=== PATIENT | female | born 1945 | race Caucasian/White ===

== ENCOUNTER → 2017-08-16 | Outpatient (CLI) | payer OTHER ==
[~2017-08-16] MED LIST: ALPRAZOLAM0.5 MG PO; ASPIR 8181 MG PO; ATENOLOL50 MG PO; CLONIDINE HCL0.1 MG PO; DAILY VITAMIN1 EAC3 PO; FLAXSEED; FLAXSEED OIL; FLAXSEED OIL PO; FLUOXETINE HCL40 MG PO; GLIPIZIDE ER10 MG PO; HYDROCODONE PO; LANTUS100 UNITS/ SQ; LOSARTAN POTASS25 MG PO; LOVASTATIN40 MG PO; LOVENOX40 MG/0.4 SC; MELATONIN10 M1 PO; METFORMIN HCL1000 MG PO; MISOPROSTOL200 MCG PO; NAPROXEN500 MG PO; NEURONTIN100 MG PO; NORCO 7.5-3251 EACH PO; OXYBUTYNIN CHLOR5 MG PO; VITAMIN B12; VITAMIN D-32000 UNIT PO; VITAMIN E1000 UNI3 PO
--- NOTE | 2017-08-16 13:14 | Diagnostic Imaging Report ---
PROCEDURE:X-RAY LEFT FOOT, TWO VIEWS COMPARISON:None. INDICATIONS:FOOT PAIN, STUBED 4TH DIGIT, BRUISING FINDINGS: Acute/subacute fracture of the base of the proximal fifth phalanx with surrounding soft tissue edema. Autofusion of the middle and distal phalanx of the fourth and fifth toes. 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 Chronic healed base of fifth metatarsal fracture. Benign-appearing smooth periosteal reaction of the second and fourth toes, possibly from chronic stress versus renal osteodystrophy. Calcaneal enthesophyte. Scattered vascular calcifications. CONCLUSION: 1. Acute/subacute fracture of the base of the proximal fifth phalanx with surrounding soft tissue edema. 2. Findings suggestive of neuropathic joint. Dictated by: Michael Stone M.D. on 08/16/2017 at 13:13 Electronically approved by: Michael Stone M.D. on 08/16/2017 at 13:13
== END ==
LOC: RAD 11:41
PROVIDERS: ATTEND Family Medicine
DX: M79.89 Other specified soft tissue disorders (principal); N95.8 Other specified menopausal and perimenopausal disorders

== ENCOUNTER 2019-03-27 15:01 | Inpatient (IN) | payer OTHER ==
[~2019-03-27] VITALS: Ht 170.2 cm; Wt 105.7 kg
[~2019-03-27 15:01] MED LIST changes: -FLAXSEED OIL
--- OUTSIDE RECORDS SUMMARY | 2019-03-27 15:05 | XMS REPORT ---
Author Author [facility] Address Unknown Phone Unavailable Care Team Providers Care Scientist Electronics Name Role Phone SAUD Layla BERNADETTE Unavailable Unavailable Problems This patient has no known problems. Allergies, Adverse Reactions, Alerts This patient has no known allergies or adverse reactions. Medications This patient has no known medications. Results Test Description Test Time Test Comments Text Results Atomic Results Result Comments SCR MAMM BILATERAL [place] CAD DIGITAL 2018-10-03 16:16:13 - SCR MAMM BILATERAL [place] CAD DIGITALBILATERAL DIGITAL SCREENING MAMMOGRAM 3D/2D WITH CAD: 10/03/2018CLINICAL: Asymptomatic. Digital breast tomosynthesis was performed in addition to routine CC and MLO views. Current mammographic images were evaluated by either a [facility] M-Vu or a [facility] ImageChecker CAD (computer aided detection system). Comparison is made to exams dated 07/02/2014 mammogram, 06/30 mammogram, and 05/21/2009 mammogram - [facility]. There are scattered fibroglandular tissues in both breasts. No suspicious mass, architectural distortion, malignant type calcification, or lymph node abnormality detected. Breast architecture is stable compared to prior exams.IMPRESSION: NEGATIVEThere is no mammographic evidence of malignancy. Resume annual screening mammography in one year. Meghna Salcedo M.D. ar/penrad:10/03/2018 16:16:13 Residential Manager: Gayle Vasquez , [facility] sent: BIRADS 1-2 Normal Mammogram BI-RADS: 1 Ne gative FOOT LEFT AP LAT [address] [address] Patient Name: AMIRA ACOSTA MR #: [id number] : 1945 Age/Sex: 72/F Req #: [id number] Adm Physician: Ordered by: BERNADETTE VILLAVICENCIO MD Report #: [id number] Location: [facility] Room/Bed: Procedure: [id number] DX/FOOT LEFT AP LAT Exam Date: 08/16/17 Exam Time: 1210 REPORT STATUS: Signed PROCEDURE: X-RAY LEFT FOOT, TWO VIEWS COMPARISON: None. INDICATIONS: FOOT PAIN, STUBED 4TH DIGIT, BRUISING FINDINGS: Acute/subacute fracture of the base of the proximal fifth phalanx with surrounding soft tissue edema. Autofusion of the middle and distal phalanx of the fourth and fifth toes. 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 Chronic healed base of fifth metatarsal fracture. Benign-appearing smooth periosteal reaction of the second and fourth toes, possibly from chronic stress versus renal osteodystrophy. Calcaneal enthesophyte. Scattered vascular calcifications. CONCLUSION: 1. Acute/subacute fracture of the base of the proximal fifth phalanx with surrounding soft tissue edema. 2. Findings suggestive of neuropathic joint. Dictated by: Fady Hearn M.D. on 08/16/2017 at 13:13 Electronically approved by: Fady Hearn M.D. on 08/16/2017 at 13:13 Dictated By: FADY HEARN MD [id number] Transcribed By: ROMINA on 08/16/17 1313 COPY TO: BERNADETTE VILLAVICENCIO MD
[2019-03-27 15:36] LABS: BASOPHILS % 0.2 % (0.0-1.0); EOSINOPHILS # (AUTO) 0.2 (0.0-0.4); EOSINOPHILS % 1.2 % (0.0-6.0); HEMATOCRIT 38.4 % (34.2-44.1); HEMOGLOBIN 12.4 g/dL (12.0-16.0); LYMPHOCYTES # (AUTO) 1.6 (1.0-3.2); MEAN CORPUSCULAR HEMOGLOBIN 30.2 pg (28-32); MEAN CORPUSCULAR HGB CONC 32.3 g/dL (31-35); MEAN CORPUSCULAR VOLUME 93.7 fL (81-99); MONOCYTES # (AUTO) 1.1 (0.2-0.8); MONOCYTES % 7.1 % (4.4-11.3); NEUTROPHILS # (AUTO) 12.5 (2.1-6.9); NEUTROPHILS % 80.9 % (38.7-80.0); PLATELET COUNT 338 x10e3/uL (140-360); RED CELL DISTRIBUTION WIDTH 13.4 % (11.7-14.4)
[2019-03-27 15:52] LABS: ALBUMIN 2.8 g/dL (3.5-5.0); ALBUMIN/GLOBULIN RATIO 0.7 (0.8-2.0); CALCIUM 9.9 mg/dL (8.4-10.2); CREATININE, SERUM 2.07 mg/dL (0.57-1.11)
[2019-03-27 16:15] LABS: BILIRUBIN,URINE NEGATIVE (NEGATIVE); CLARITY,URINE CLOUDY (CLEAR); COLOR,URINE YELLOW (YELLOW); KETONES,URINE NEGATIVE (NEGATIVE); LEUKOCYTE ESTERASE ,URINE SMALL (NEGATIVE); NITRITE,URINE POSITIVE (NEGATIVE); PROTEIN,URINE DIPSTICK 2+ (NEGATIVE); URINE UROBILINOGEN 0.2 mg/dL (0.2 - 1)
[2019-03-27 16:30] LABS: BACTERIA,URINE MANY /HPF
[2019-03-27] MEDS ORDERED: ONDANSETRON HCL INJ 2MG/ML 2ML 2 MG/ML VIAL IV NR (16:45)
[2019-03-27] MEDS ORDERED: MORPHINE SULFATE INJ 4 MG/ML INJ 1ML IV NR (16:45)
[2019-03-27] MEDS ORDERED: SODIUM CHLORIDE 0.9% 500ML 500 ML IV ONE (16:45)
[2019-03-27] MEDS ORDERED: DIATRIZOATE MEGL/DIATRIZOA SOD 30 ML BTL PO ONE (16:48)
--- NOTE | 2019-03-27 18:12 | Diagnostic Imaging Report ---
EXAMINATION: CT of the abdomen and pelvis without contrast. TECHNIQUE: Helical CT images of the abdomen and pelvis were performed from the lung bases to the lesser trochanters. No intravenous contrast was given. Positive enteric contrast.. Coronal and sagittal reformatted images were obtained.Dose modulation, iterative reconstruction, and/or weight based adjustment of the mA/kV was utilized to reduce the radiation dose to as low as reasonably achievable. COMPARISON: None. CLINICAL HISTORY:Stomach pain DISCUSSION: ABSENCE OF INTRAVENOUS CONTRAST DECREASES SENSITIVITY FOR DETECTION OF FOCAL LESIONS AND VASCULAR PATHOLOGY. ABDOMEN/PELVIS: LOWER THORAX: Coronary artery calcifications. HEPATOBILIARY:No focal hepatic lesions. No biliary ductal dilation. The gallbladder is normal. SPLEEN: No splenomegaly. PANCREAS: No focal masses or ductal dilatation. ADRENALS: No adrenal nodules. KIDNEYS/URETERS: Atrophy of the kidneys, worse on the left. PELVIC ORGANS/BLADDER: Bladder is normal. Hysterectomy. PERITONEUM/RETROPERITONEUM: Mild ascites. LYMPH NODES: No intra-abdominal,retroperitoneal, pelvic or inguinal lymphadenopathy. VESSELS: Limited evaluation. GI TRACT: Colonic diverticulosis BONES AND SOFT TISSUES: No bony destructive lesions. No soft tissue abnormalities. IMPRESSION: Colonic diverticulosis with possible mild sigmoid diverticulitis. Mild abdominal ascites. Signed by: Dr. Emmanuel Cedeno M.D. on 03/27/2019 6:09 PM
[2019-03-27] MEDS ORDERED: DEXTROSE 50% SYRINGE 50 ML IV PRN (19:30)
[2019-03-27] MEDS ORDERED: SODIUM CHLORIDE 0.9% 1000ML 1,000 ML ONE (19:32)
[2019-03-27] MEDS: SODIUM CHLORIDE 0.9% 1000ML 1,000 ML IV SCH (19:33)
[2019-03-27] MEDS: ONDANSETRON HCL INJ 2MG/ML 2ML 2 MG/ML VIAL IV PRN ×2 (19:40→23:58)
[2019-03-27] MEDS: METRONIDAZOLE 500MG/NS 100ML 100 ML IV SCH (19:41)
[2019-03-27] MEDS: MORPHINE SULFATE INJ 4 MG/ML INJ 1ML IV PRN ×2 (19:41→23:58)
[2019-03-27] MEDS ORDERED: GLIPIZIDE ER10 MG PO (20:02)
[2019-03-27] MEDS ORDERED: GABAPENTIN100 MG PO (20:02)
[2019-03-27] MEDS ORDERED: TRAZODONE HCL100 MG PO (20:02)
[2019-03-27] MEDS ORDERED: BASAGLAR SC (20:02)
[2019-03-27] MEDS ORDERED: LISINOPRIL2.5 MG PO (20:02)
[2019-03-27] MEDS ORDERED: DONEPEZIL HCL10 MG PO (20:02)
[2019-03-27] MEDS ORDERED: OXYCODON-ACETA1 EAC2 PO (20:02)
[2019-03-27] MEDS ORDERED: AZELASTINE137 MCG/0. IN (20:02)
[2019-03-27] MEDS ORDERED: MIRTAZAPINE7.5 MG PO (20:02)
--- NOTE | 2019-03-27 20:58 | NUR ---
PT IS TRANSFERRED FROM ER.PT IS AOX3 .RESPIRATIONS ARE EVEN AND UNLABORED .PT C/O ABD PAIN SKIN WARM AND DRY TO TOUCH RT AC 20 G IS RUNNING NS AT 125 CC/HR .FACILITY AT BEDSIDE .CALL LIGHT WITH IN REACH .CONTINUE TO MONITOR
[2019-03-27] MEDS: INSULIN REGULAR, HUMAN 100 UNIT/1 ML 3ML VIAL SQ SCH (21:00)
[2019-03-27 21:15] VITALS: BP 168/71
[2019-03-27] MEDS: CIPROFLOXACIN 400 MG/D5W 200ML 200 ML IV SCH (22:00)
[2019-03-27 23:11] VITALS: BP 168/71
[2019-03-27 23:19] VITALS: BP 168/71
[2019-03-28] VITALS (7 sets, daily range): BP systolic 146–194; BP diastolic 67–90
[2019-03-28] MEDS: METRONIDAZOLE 500MG/NS 100ML 100 ML IV SCH ×3 (04:00→20:41)
[2019-03-28] MEDS: ONDANSETRON HCL INJ 2MG/ML 2ML 2 MG/ML VIAL IV PRN ×4 (05:36→21:08)
[2019-03-28] MEDS: MORPHINE SULFATE INJ 4 MG/ML INJ 1ML IV PRN ×4 (05:36→21:10)
[2019-03-28] MEDS: SODIUM CHLORIDE 0.9% 1000ML 1,000 ML IV SCH (05:36)
[2019-03-28 05:58] LABS: BASOPHILS % 0.4 % (0.0-1.0); EOSINOPHILS # (AUTO) 0.3 (0.0-0.4); EOSINOPHILS % 2.6 % (0.0-6.0); HEMATOCRIT 34.8 % (34.2-44.1); LYMPHOCYTES # (AUTO) 1.4 (1.0-3.2); LYMPHOCYTES % 13.7 % (18.0-39.1); MEAN CORPUSCULAR HEMOGLOBIN 30.4 pg (28-32); MEAN CORPUSCULAR HGB CONC 31.6 g/dL (31-35); MEAN CORPUSCULAR VOLUME 96.1 fL (81-99); MONOCYTES % 9.6 % (4.4-11.3); NEUTROPHILS # (AUTO) 7.7 (2.1-6.9); PLATELET COUNT 258 x10e3/uL (140-360); RED BLOOD COUNT 3.62 x10e6/uL (3.6-5.1); RED CELL DISTRIBUTION WIDTH 13.7 % (11.7-14.4)
[2019-03-28 06:23] LABS: ANION GAP 13.5 mmol/L (8-16); CALCIUM 9.5 mg/dL (8.4-10.2); CREATININE, SERUM 1.72 mg/dL (0.57-1.11); POTASSIUM 5.5 mmol/L (3.5-5.1)
--- NOTE | 2019-03-28 06:34 | NUR ---
PT RESTED DURING THE NIGHT .PT C/O ABD PAIN AND GIVEN ORDERD PAIN MEDICATION.BEDSIDE REPORT GIVEN TO THE ONCOMING NURSE
[2019-03-28 06:53] LABS: PLATELET ESTIMATE ADEQUATE
--- NOTE | 2019-03-28 06:58 | NUR ---
RECEIVED REPORT FROM ONCOMING NURSE. WALKING ROUNDS DONE. PATIENT IS RESTING IN BED. RESPIRATIONS EVEN AND UNLABORED, NO ACUTE DISTRESS NOTED. CALL LIGHT WITHIN REACH. BED IN THE LOWEST POSITION.
[2019-03-28] MEDS: INSULIN REGULAR, HUMAN 100 UNIT/1 ML 3ML VIAL SQ SCH ×4 (07:30→20:46)
[2019-03-28] MEDS ORDERED: OXYCODONE PO PRN (09:15)
[2019-03-28] MEDS ORDERED: ACETAMINOPHEN PO PRN (09:15)
[2019-03-28] MEDS: ATENOLOL 50 MG TAB PO SCH (09:46)
[2019-03-28] MEDS: CIPROFLOXACIN 400 MG/D5W 200ML 200 ML IV SCH ×2 (09:48→21:50)
[2019-03-28] MEDS: FLUOXETINE HCL 20 MG CAP PO SCH (09:48)
--- NOTE | 2019-03-28 09:54 | NUR ---
DR. SWANN NOTIFIED OF POTASSIUM LEVEL OF 5.5, NO NEW ORDERS RECEIVED.
--- NOTE | 2019-03-28 16:08 | History and Physical ---
CHIEF COMPLAINT: Left abdominal pain, urinary tract infection, diverticulitis. HISTORY OF PRESENT ILLNESS: A 73-year-old female, came in with abdominal pain. She was already started on Cipro and Flagyl. The patient's pain has improved today. She is on clear liquid diet. She has also had urinary incontinence. She is using a diaper at home. The patient is otherwise stable at this time. PAST MEDICAL HISTORY: Urinary incontinent, diverticular disease, hypertension, allergic rhinitis, mild functional dementia, depression, diabetes type 2, osteoarthritis, and pain. PAST SURGICAL HISTORY: Gallbladder surgery, complete hysterectomy, and right knee replacement. SOCIAL HISTORY: The patient does not smoke or use alcohol. No regular drug. ALLERGIES: SULFA AND IBUPROFEN. HOME MEDICATIONS: 1. Atenolol. 2. Azelastine nasal spray. 3. Vitamin D3. 4. Clonidine. 5. Aricept. 6. Flaxseed. 7. Prozac. 8. Gabapentin. 9. Glipizide. 10. Lisinopril. 11. Mirtazapine. 12. Percocet p.r.n. 13. Trazodone. 14. Vitamin E. 15. . PHYSICAL EXAMINATION: VITAL SIGNS: Temperature is 98, blood pressure 152/67, pulse rate 63, and respirations 18. GENERAL: The patient is not in acute distress. She is awake. No chest pain. No abdominal pain. HEENT: Normocephalic, atraumatic. Pupils reactive. Anicteric. NECK: Supple grossly. PULMONARY: Diminished breath sounds without any wheezing or rales. CARDIOVASCULAR: Regular rate and rhythm. ABDOMEN: Tenderness in the left lower quadrant without guarding. No rebound tenderness. EXTREMITIES: No gross cyanosis or edema. NEUROLOGIC: No gross focal deficit. LABORATORY DATA: Sodium is 136, potassium 5.5, chloride 106, bicarb 22, BUN 29, creatinine 1.7, glucose 126. WBC is 10, hemoglobin 11, hematocrit 34.8, and platelets 258. CT scan of abdomen and pelvis that was done showed colonic diverticulosis with possible mild sigmoid diverticulitis. Urinalysis showed that the patient does have urinary tract infection. IMPRESSION: 1. Mild sigmoid diverticulitis. 2. Urinary tract infection. 3. Elevation of potassium, most likely from either hemolysis versus on lisinopril. PLAN: Resume the patient home medication. Discontinue IV fluid due to increased blood pressure. Continue with Cipro and Flagyl IV. Consultation with Gastroenterology. Insulin sliding scale coverage. Resume same home medication except for lisinopril. Increase in activity. PT, OT. Monitor the patient's lab work. Continue with clear liquid diet for now. MD FABBY Costa/CHAYO /[id number]
[2019-03-28] MEDS: GABAPENTIN 100 MG CAP PO SCH (16:57)
--- NOTE | 2019-03-28 19:12 | NUR ---
REPORT GIVEN TO ONCOMING NURSE. WALKING ROUNDS DONE. PATIENT IS RESTING IN BED. NO ACUTE DISTRESS NOTED. CALL LIGHT WITHIN REACH. BED IN THE LOWEST POSITION.
--- NOTE | 2019-03-28 20:00 | NUR ---
CALL PLACED TO DR SWANN TO NOTIFY PT'S ELEVATED BLOOD PRESSURE.N/O RECEIVED AND ENTERED.
[2019-03-28] MEDS ORDERED: AMLODIPINE BESYLATE 10 MG TAB PO ONE (20:30)
[2019-03-28] MEDS: INSULIN GLARGINE 100 UNITS/ML VIAL SC SCH (20:42)
[2019-03-28] MEDS: DONEPEZIL HCL 5 MG TAB PO SCH (20:45)
[2019-03-28] MEDS: TRAZODONE HCL 50 MG TAB PO SCH (20:45)
[2019-03-28] MEDS: MIRTAZAPINE 15 MG TAB PO SCH (20:45)
[2019-03-29] VITALS (8 sets, daily range): BP systolic 152–189; BP diastolic 69–92
--- NOTE | 2019-03-29 01:06 | Consultation ---
DATE OF CONSULTATION: 03/28/2019 HISTORY OF PRESENT ILLNESS: The patient is 73-year-old, who has a history of hypertension, history of dementia, depression, and diabetes, presented to the hospital because of abdominal pain and malaise in the lower abdominal area. The patient has some nausea, but denies any vomiting. Her workup so far revealed that she has evidence of acute and sigmoid diverticulitis with mild abdominal ascites. Her white count was high on admission, it is about 15 and is back to normal. Hemoglobin dropped to 11. She never have colonoscopy in the past. PAST MEDICAL PROBLEM: History of diverticular disease, hepatitis, allergic rhinitis, history of possible dementia, depression, diabetes, and arthritis. She has cholecystectomy, hysterectomy, and right knee replacement. ALLERGIES: SULFA AND IBUPROFEN. MEDICATIONS: At home include atenolol, azelastine nasal spray, vitamin D3, clonidine, Aricept, flaxseed, Prozac, gabapentin, glipizide, lisinopril, mirtazepine, trazodone, and vitamin E. REVIEW OF SYSTEMS: At this point, denies any chest pain. Denies any shortness of breath. Denies any dysphagia or odynophagia. Denies any dysuria, hematuria, or any syncopal episode. PHYSICAL EXAMINATION: GENERAL: The patient is awake and alert, appears to be stable. VITAL SIGNS: Afebrile, currently. HEAD, EYES, EARS, NOSE, AND THROAT: Normocephalic and atraumatic. Sclera is anicteric. NECK: Supple. HEART: Regular. ABDOMEN: Soft. There is some tenderness mostly in the right lower quadrant area, but also that is mild in the left lower quadrant and there is no rebound or mass. EXTREMITIES: No cyanosis. No clubbing. LAB VALUES: BUN 30 and creatinine 2.07. Liver enzymes appear to be normal. WBC today is 10.47, it was 15.44 on admission. Hemoglobin 11.0 and hematocrit of 34.8. CAT scan as mentioned before. IMPRESSION AND PLAN: 1. Acute sigmoid diverticulitis and the patient have also myositis in there. 2. History of diabetes, history of dementia, hypertension, to continue antibiotic at this point, as well as clear liquid diet. We will need to have a colonoscopy as an outpatient in about 6 to 8 weeks. Follow labs and clinically. MD MARIANA Hankins/CHAYO /[id number] cc: MD Jerald Costa MD
[2019-03-29] MEDS: ONDANSETRON HCL INJ 2MG/ML 2ML 2 MG/ML VIAL IV PRN ×3 (03:38→18:26)
[2019-03-29] MEDS: MORPHINE SULFATE INJ 4 MG/ML INJ 1ML IV PRN ×4 (03:40→23:59)
[2019-03-29] MEDS: METRONIDAZOLE 500MG/NS 100ML 100 ML IV SCH ×3 (03:47→19:48)
--- NOTE | 2019-03-29 06:52 | NUR ---
REPORT GIVEN TO ONCOMING NURSE.WALKING ROUNDS MADE.PT RESTING IN BED WITH NO S/S OF DISTRESS.
--- NOTE | 2019-03-29 06:54 | NUR ---
Received report from off going nurse. Patient is resting in bed. No acute distress noted. No s/s of pain noted at this time. Call light within reach. Bed in the lowest position.
[2019-03-29 07:09] LABS: BASOPHILS % 0.2 % (0.0-1.0); EOSINOPHILS # (AUTO) 0.3 (0.0-0.4); EOSINOPHILS % 2.2 % (0.0-6.0); HEMATOCRIT 35.4 % (34.2-44.1); HEMOGLOBIN 11.3 g/dL (12.0-16.0); LYMPHOCYTES # (AUTO) 1.2 (1.0-3.2); LYMPHOCYTES % 9.5 % (18.0-39.1); MEAN CORPUSCULAR HEMOGLOBIN 29.9 pg (28-32); MEAN CORPUSCULAR HGB CONC 31.9 g/dL (31-35); MEAN CORPUSCULAR VOLUME 93.7 fL (81-99); MONOCYTES # (AUTO) 1.7 (0.2-0.8); NEUTROPHILS # (AUTO) 9.6 (2.1-6.9); NEUTROPHILS % 74.4 % (38.7-80.0); PLATELET COUNT 346 x10e3/uL (140-360); RED BLOOD COUNT 3.78 x10e6/uL (3.6-5.1); RED CELL DISTRIBUTION WIDTH 13.7 % (11.7-14.4)
[2019-03-29 07:21] LABS: ANION GAP 12.5 mmol/L (8-16); CALCIUM 9.5 mg/dL (8.4-10.2); CREATININE, SERUM 1.99 mg/dL (0.57-1.11); POTASSIUM 5.5 mmol/L (3.5-5.1)
[2019-03-29 07:35] LABS: MAGNESIUM 1.8 MG/DL (1.3-2.1); PHOSPHORUS 3.7 MG/DL (2.3-4.7)
[2019-03-29 07:55] LABS: THYROID STIMULATING HORMONE 1.25 uIU/mL (0.350-4.940)
[2019-03-29] MEDS: INSULIN REGULAR, HUMAN 100 UNIT/1 ML 3ML VIAL SQ SCH ×4 (08:25→21:12)
[2019-03-29] MEDS: INSULIN GLARGINE 100 UNITS/ML VIAL SC SCH ×2 (08:25→21:13)
[2019-03-29] MEDS: GABAPENTIN 100 MG CAP PO SCH ×2 (08:30→16:20)
[2019-03-29] MEDS: AZELASTINE HCL 137 MCG NASAL SPRAY NS SCH (08:30)
[2019-03-29] MEDS: ATENOLOL 50 MG TAB PO SCH (08:30)
[2019-03-29] MEDS: FLUOXETINE HCL 20 MG CAP PO SCH (08:30)
[2019-03-29] MEDS: CIPROFLOXACIN 400 MG/D5W 200ML 200 ML IV SCH ×2 (09:20→21:12)
--- NOTE | 2019-03-29 09:30 | NUR ---
Notified Dr. Hdz of potassium 5.5, no new orders at this time.
[2019-03-29] MEDS ORDERED: NIFEDIPINE CR 30 MG TAB PO ONE (10:30)
[2019-03-29] MEDS ORDERED: SOD POLYSTYRENE SULFONATE SUSP 15 GM/60 ML BTL PO ONE (10:30)
--- NOTE | 2019-03-29 11:35 | NUR ---
PATIENT C/O PAIN, NOTIFIED NURSE THAT MORPHINE IS NOT WORKING FOR HER. PAGED DR. SWANN AT THIS TIME, NO ANSWER, LVM, AWAITING BUDGET CONSULTANT BACK.
[2019-03-29] MEDS: HYDROCODONE/APAP 5MG-325MG TAB PO PRN ×2 (12:48→16:49)
[2019-03-29] MEDS: ENOXAPARIN SOD INJ 40 MG/0.4 ML SYR SC SCH (16:20)
--- NOTE | 2019-03-29 19:25 | NUR ---
Report given to oncoming nurse. Walking rounds done. Patient is resting in bed. No acute distress noted. Call light within reach. Bed in the lowest position.
--- NOTE | 2019-03-29 20:20 | NUR ---
CALL PLACED TO DR SWANN AND NOTIFIED PT'S BP OF 181/77.DR SWANN STATED TO MONITOR BP FOR NOW.NO NEW ORDERS RECEIVED.
[2019-03-29] MEDS: DONEPEZIL HCL 5 MG TAB PO SCH (21:12)
[2019-03-29] MEDS: MIRTAZAPINE 15 MG TAB PO SCH (21:12)
[2019-03-29] MEDS: TRAZODONE HCL 50 MG TAB PO SCH (21:12)
[2019-03-30] VITALS (8 sets, daily range): BP systolic 118–171; BP diastolic 61–89
[2019-03-30] MEDS: METRONIDAZOLE 500MG/NS 100ML 100 ML IV SCH (03:33)
[2019-03-30] MEDS ORDERED: NIFEDIPINE CR 30 MG TAB PO SCH ×2 (06:00→06:35)
[2019-03-30 06:19] LABS: BASOPHILS % 0.2 % (0.0-1.0); EOSINOPHILS # (AUTO) 0.2 (0.0-0.4); EOSINOPHILS % 1.9 % (0.0-6.0); HEMATOCRIT 37.1 % (34.2-44.1); HEMOGLOBIN 11.9 g/dL (12.0-16.0); LYMPHOCYTES # (AUTO) 1.1 (1.0-3.2); LYMPHOCYTES % 8.4 % (18.0-39.1); MEAN CORPUSCULAR HEMOGLOBIN 30.3 pg (28-32); MEAN CORPUSCULAR HGB CONC 32.1 g/dL (31-35); MEAN CORPUSCULAR VOLUME 94.4 fL (81-99); MONOCYTES # (AUTO) 1.5 (0.2-0.8); MONOCYTES % 11.5 % (4.4-11.3); NEUTROPHILS # (AUTO) 9.9 (2.1-6.9); NEUTROPHILS % 77.5 % (38.7-80.0); PLATELET COUNT 358 x10e3/uL (140-360); RED BLOOD COUNT 3.93 x10e6/uL (3.6-5.1); RED CELL DISTRIBUTION WIDTH 13.6 % (11.7-14.4)
[2019-03-30 06:44] LABS: ANION GAP 14.3 mmol/L (8-16); CALCIUM 9.5 mg/dL (8.4-10.2); CREATININE, SERUM 2.13 mg/dL (0.57-1.11); POTASSIUM 5.3 mmol/L (3.5-5.1)
--- NOTE | 2019-03-30 07:07 | NUR ---
REPORT GIVEN TO ONCOMING NURSE.WALKING ROUNDS MADE.PT RESTING IN BED WITH NO S/S OF DISTRESS.
[2019-03-30] MEDS: INSULIN REGULAR, HUMAN 100 UNIT/1 ML 3ML VIAL SQ SCH ×4 (07:42→22:29)
[2019-03-30] MEDS: INSULIN GLARGINE 100 UNITS/ML VIAL SC SCH ×2 (08:41→22:29)
--- NOTE | 2019-03-30 08:50 | NUR ---
Notified Dr Hdz regarding potassium level 5.3, NO New orders,patient is stable
[2019-03-30] MEDS: ATENOLOL 50 MG TAB PO SCH (09:16)
[2019-03-30] MEDS: CIPROFLOXACIN 400 MG/D5W 200ML 200 ML IV SCH (09:17)
[2019-03-30] MEDS: GABAPENTIN 100 MG CAP PO SCH ×2 (09:17→17:09)
[2019-03-30] MEDS: AZELASTINE HCL 137 MCG NASAL SPRAY NS SCH (09:17)
[2019-03-30] MEDS: FLUOXETINE HCL 20 MG CAP PO SCH (09:18)
[2019-03-30] MEDS ORDERED: NIFEDIPINE CR 30 MG TAB PO ONE (09:30)
[2019-03-30] MEDS: POLYETHYLENE GLYCOL 3350 17 GM PACK PO SCH ×2 (11:08→17:09)
[2019-03-30] MEDS: SENNOSIDES 8.6 MG TAB PO SCH ×2 (11:08→17:09)
[2019-03-30] MEDS: PIPER-TAZ 3.375 GM 50 ML IV SCH ×3 (11:25→23:37)
--- NOTE | 2019-03-30 15:41 | NUR ---
Nutrition Intervention Note RD Recommendation(s) for Physician: -ADAT to GI soft, low fat diet per MD. Plan of Care: RD following, monitoring for tolerance and adequacy. Ensure Clear BID as tolerated. Nutrition reason for involvement: Clear liquids-x3 days RD Assessment 03/30: 73 YOF admitted for diverticulitis, UTI with PMH listed below. Pt reports she has not been wanting to eat anything for the past couple of days. She was unaware of any unintentional weight loss recently. Pt reported she had N/V and have not had a BM yet- LBM is recorded as 03/30 in EMR. Pt denied any chewing or swallowing issues as well as any food allergies. Recommend Ensure Clear to provide the pt with additional calories and protein. Pt reported she did not want sugar on her trays, she wanted sweet and low instead, recorded this in HT. Discussed pt in rounds, Pt has high K currently. (Ensure clear does not have any potassium in it) Per MD note from 03/29, continue antibiotic at this point, as well as clear liquid diet. We will need to have a colonoscopy as an outpatient in about 6 to 8 weeks. Spoke with nurse, unaware when diet will be advanced. If diet is not advanced within 4 days, recommend alternate source of nutrition. Pt would benefit from nutrition education at next f/u. Will continue to monitor to ensure diet advancement and tolerance. Principal Problems/Diagnoses: Diverticulitis, UTI PMH: Urinary incontinent, diverticular disease, hypertension, allergic rhinitis, mild functional dementia, depression, diabetes type 2, osteoarthritis, and pain. GI:Abd: Soft; roun, flatus: present, LBM: 03/30 Skin: no wound present Labs: 03/30: Na 134, K 5.3, CO2 21, BUN 27, Creat 2.13, Gluc 192, POC GM 201 Meds: senna, miralaax, Prozac, gabapentin, insulin, remeron, Aricept, zofran, lovone, norco, abx, Ht:67 in Wt:233 lbs BMI:36.5 kg/m^2 IBW:135 lbs Malnutrition Evaluation (03/30) The patient does not meet criteria for a specified degree of malnutrition at this time. Will re-evaluate at follow-up as appropriate. Nutrition Prescription (Diet Order): clear liquids Estimated Nutritional Needs: Calories: 9753-6763(22-25 kcal/kg/day) Weight used : IBW: 61 kg Protein : 91-122(1.5-2 gram/protein/day) Weight used: IBW: 61 kg Diet Adequacy: Not meeting calorie needs, Not meeting protein needs Diet Education Needs Assessment: Diet education not indicated, patient on temporary/transition diet. Nutrition Care Level: mod Nutrition Diagnosis: Inadequate energy intake related to medical condition as evidenced by pt being on clear liquids for 4 days. Goal: Patient will meet 75-100% of estimated needs by follow up Progress: N/A Interventions: Carb, fiber modified diet, Commercial beverage IVF, Prescription medications Monitoring/Evaluation: -Total energy intake, Total protein intake, , IVF, Prescription medication, Modified diet, Liquid supplement, Signed: Jennifer Yoo RD, KAILEY Addendum: 03/30/19 at 1620 by Jennifer Yoo DIET -BG monitoring and insulin management per MD.
--- NOTE | 2019-03-30 17:07 | Diagnostic Imaging Report ---
Exam: KUB - 2 views Indication: Abdominal pain, ileus Comparison: CT abdomen pelvis of 03/27/2019 Findings: There are multiple loops of dilated air-filled small bowel throughout the abdomen, the largest of which measures up to 5.2 cm maximum diameter. No free air. No pneumatosis. Residual contrast material in the colon. Impression: Dilated loops of air-filled small bowel measuring up to 5.2 cm more likely represent ileus than obstruction. Signed by: Nicole Will MD on 03/30/2019 5:03 PM
[2019-03-30] MEDS: ENOXAPARIN SOD INJ 40 MG/0.4 ML SYR SC SCH (17:09)
--- NOTE | 2019-03-30 19:00 | NUR ---
received report from day nurse. patient is resting comfortably in bed. bed is in lowest position and call light is within reach will continue to monitor patient.
[2019-03-30] MEDS: DONEPEZIL HCL 5 MG TAB PO SCH (21:36)
[2019-03-30] MEDS: MIRTAZAPINE 15 MG TAB PO SCH (21:36)
[2019-03-30] MEDS: TRAZODONE HCL 50 MG TAB PO SCH (21:36)
[2019-03-31] VITALS: BP 124/71
[2019-03-31 04:00] VITALS: BP 169/74
[2019-03-31] MEDS: PIPER-TAZ 3.375 GM 50 ML IV SCH ×2 (04:54→11:00)
[2019-03-31] MEDS: HYDROCODONE/APAP 5MG-325MG TAB PO PRN (04:58)
[2019-03-31 06:08] LABS: BASOPHILS % 0.3 % (0.0-1.0); EOSINOPHILS # (AUTO) 0.5 (0.0-0.4); EOSINOPHILS % 3.5 % (0.0-6.0); HEMATOCRIT 33.9 % (34.2-44.1); HEMOGLOBIN 10.8 g/dL (12.0-16.0); LYMPHOCYTES # (AUTO) 1.4 (1.0-3.2); LYMPHOCYTES % 11.1 % (18.0-39.1); MEAN CORPUSCULAR HEMOGLOBIN 29.6 pg (28-32); MEAN CORPUSCULAR HGB CONC 31.9 g/dL (31-35); MEAN CORPUSCULAR VOLUME 92.9 fL (81-99); MONOCYTES # (AUTO) 1.6 (0.2-0.8); MONOCYTES % 12.3 % (4.4-11.3); NEUTROPHILS # (AUTO) 9.3 (2.1-6.9); NEUTROPHILS % 72.1 % (38.7-80.0); PLATELET COUNT 373 x10e3/uL (140-360); RED BLOOD COUNT 3.65 x10e6/uL (3.6-5.1); RED CELL DISTRIBUTION WIDTH 13.6 % (11.7-14.4)
[2019-03-31 06:28] LABS: ANION GAP 16.6 mmol/L (8-16); CALCIUM 9.3 mg/dL (8.4-10.2); CREATININE, SERUM 2.74 mg/dL (0.57-1.11); POTASSIUM 4.6 mmol/L (3.5-5.1)
--- NOTE | 2019-03-31 07:10 | NUR ---
PT SITTING ON SIDE OF BED. DENIES PAIN.
--- NOTE | 2019-03-31 07:11 | NUR ---
report given to day nurse. patient is resting comfortably in bed. bed is in lowest position and call light is within reach.
[2019-03-31] MEDS: INSULIN REGULAR, HUMAN 100 UNIT/1 ML 3ML VIAL SQ SCH (07:30)
[2019-03-31 08:00] VITALS: BP 142/71
[2019-03-31] MEDS: FLUOXETINE HCL 20 MG CAP PO SCH (09:00)
[2019-03-31] MEDS: ATENOLOL 50 MG TAB PO SCH (09:00)
[2019-03-31] MEDS ORDERED: NIFEDIPINE CR 30 MG TAB PO SCH (09:00)
[2019-03-31] MEDS: GABAPENTIN 100 MG CAP PO SCH (09:00)
[2019-03-31] MEDS: AZELASTINE HCL 137 MCG NASAL SPRAY NS SCH (09:00)
[2019-03-31] MEDS: INSULIN GLARGINE 100 UNITS/ML VIAL SC SCH (09:00)
[2019-03-31] MEDS: POLYETHYLENE GLYCOL 3350 17 GM PACK PO SCH (09:00)
--- NOTE | 2019-03-31 09:30 | NUR ---
DR SWANN IN EARLIER PT TO BE DC LATER.
[2019-03-31] MEDS: SENNOSIDES 8.6 MG TAB PO SCH (09:53)
--- NOTE | 2019-03-31 10:45 | NUR ---
IV REMOVED. PT WAITING FOR HER .
[2019-03-31] MEDS ORDERED: ZOFRAN4 MG PO (11:01)
[2019-03-31] MEDS ORDERED: LEVAQUIN500 MG PO (11:02)
[2019-03-31] MEDS ORDERED: FLAGYL500 MG PO (11:05)
[2019-03-31] MEDS ORDERED: NIFEDIPINE20 MG PO (11:07)
[2019-03-31] MEDS ORDERED: AFEDITAB CR60 MG (11:07)
[2019-03-31] MEDS ORDERED: MIRALAX17 GM PO (11:08)
--- NOTE | 2019-03-31 11:17 | NUR ---
PT DISCHARGED AND ACCOMPANIED DOWN BY STAFF VIA WC
--- NOTE | 2019-03-31 11:45 | Discharge Summary ---
PRIMARY CARE PHYSICIAN: Jerald Soliman MD. CLINICAL ORTHOPTIST: Te Browning MD. FINAL DIAGNOSES: 1. Acute sigmoid diverticulitis without any perforation, sigmoid diverticulitis. 2. Urinary tract infection. 3. Morbid obesity. 4. Constipation. 5. Electrolyte disorder, corrected. 6. Acute dehydration with increase in BUN and creatinine at baseline of chronic kidney disease. SUMMARY: The patient is 73-year-old female, came in with abdominal pain, left lower quadrant. CT scan show early-onset sigmoid diverticulitis. The patient also has urinary tract infection. The patient has pain, nausea, and vomiting, but much improved now. Pain has subsided. The patient is morbidly obese. She is doing better in light of all the abnormal lab results. She is able to eat and advance her diet. The patient wanted to go home today. She is stating that she is not active in the hospital and she want to go home, recovery at home instead of stay remain in the hospital at this time. The patient's discharge medication is Zofran 4 mg sublingual q.4 p.r.n., Levaquin 500 mg daily for 5 days, Flagyl 500 mg t.i.d. for 5 days, Bacid 1 capsule t.i.d., Senna S 1 tablet b.i.d., nifedipine CR 60 mg daily, and MiraLAX 17 g b.i.d. Because of her chronic kidney disease, we will stop the lisinopril and we will start the patient on flaxseed. The patient is otherwise stable. Resume other home medication. The patient to follow up with Dr. Jerald Soliman within a week and Dr. Te Browning within 2 to 3 weeks. The patient will need outpatient planning for colonoscopy. The patient is otherwise stable, has bowel movement, urinating fine. No fever and pain have subsided and the patient want to go home now. MD Brittani CostaT/MODL /[id number]
== END 2019-03-31 11:17 | disposition home or self-care (01) | DRG 392 ==
LOC: ER 15:01 → ERHOLD 18:34 → MED/SURG3 21:03
PROVIDERS: ADMIT Internal Medicine; ATTEND Internal Medicine
DX: K57.32 Diverticulitis of large intestine without perforation or abscess without bleeding (principal); N39.0 Urinary tract infection, site not specified; R18.8 Other ascites; E66.01 Morbid (severe) obesity due to excess calories; Z68.36 Body mass index [BMI] 36.0-36.9, adult; E87.8 Other disorders of electrolyte and fluid balance, not elsewhere classified; E86.0 Dehydration; F03.90 Unspecified dementia, unspecified severity, without behavioral disturbance, psychotic disturbance, mood disturbance, and anxiety; Z96.651 Presence of right artificial knee joint; E87.5 Hyperkalemia; I12.9 Hypertensive chronic kidney disease with stage 1 through stage 4 chronic kidney disease, or unspecified chronic kidney disease; N18.9 Chronic kidney disease, unspecified; E11.22 Type 2 diabetes mellitus with diabetic chronic kidney disease; R32 Unspecified urinary incontinence
CPT/HCPCS: 36415; 74018; 74176; 80048; 80053; 81001; 82948; 83735; 84100; 84443; 85025; 96374; 96375; 97139; 99284; J1650; J1815; J1817; J2270; J2405; J2543; J7030; J7040

== ENCOUNTER 2020-08-12 08:31 | Inpatient (IN) | payer MEDICARE, OTHER ==
[~2020-08-12] VITALS: Ht 170.2 cm; Wt 102.2 kg
[~2020-08-12 08:31] MED LIST changes: +AFEDITAB CR60 MG; +ATORVASTATIN CA80 MG PO; +AZELASTINE137 MCG/0. IN; +BASAGLAR SC; +DONEPEZIL HCL10 MG PO; +FLAGYL500 MG PO; +FLAXSEED OIL1000 MG PO; +GABAPENTIN100 MG PO; +LEVAQUIN500 MG PO; +LISINOPRIL2.5 MG PO; +MEMANTINE HCL10 MG PO; +MIRALAX17 GM PO; +MIRTAZAPINE7.5 MG PO; +NIFEDIPINE20 MG PO; +OXYCODON-ACETA1 EAC2 PO; +TRAZODONE HCL100 MG PO; +ZOFRAN4 MG PO; +ZYRTEC10 MG PO
[2020-08-12] MEDS ORDERED: TETANUS/DIPHTHERIA TOX ADULT 0.5 ML SYR IM ONE (08:45)
[2020-08-12 09:22] LABS: BASOPHILS % 0.2 % (0.0-1.0); EOSINOPHILS % 0.3 % (0.0-6.0); HEMATOCRIT 26.6 % (34.2-44.1); HEMOGLOBIN 8.4 g/dL (12.0-16.0); LYMPHOCYTES # (AUTO) 0.6 (1.0-3.2); LYMPHOCYTES % 5.4 % (18.0-39.1); MEAN CORPUSCULAR HEMOGLOBIN 28.6 pg (28-32); MEAN CORPUSCULAR HGB CONC 31.6 g/dL (31-35); MEAN CORPUSCULAR VOLUME 90.5 fL (81-99); MONOCYTES # (AUTO) 1.2 (0.2-0.8); MONOCYTES % 11.5 % (4.4-11.3); NEUTROPHILS # (AUTO) 8.3 (2.1-6.9); NEUTROPHILS % 81.9 % (38.7-80.0); PLATELET COUNT 217 x10e3/uL (140-360); RED BLOOD COUNT 2.94 x10e6/uL (3.6-5.1); RED CELL DISTRIBUTION WIDTH 14.2 % (11.7-14.4)
[2020-08-12 09:36] LABS: INR 1.18; PROTHROMBIN TIME 15.8 seconds (11.9-14.5)
[2020-08-12 09:42] LABS: ALBUMIN 3.2 g/dL (3.5-5.0); ALBUMIN/GLOBULIN RATIO 0.9 (0.8-2.0); ANION GAP 13.6 mmol/L (8-16); CALCIUM 8.5 mg/dL (8.4-10.2); CREATININE, SERUM 2.9 mg/dL (0.57-1.11)
[2020-08-12 09:46] LABS: AMPHETAMINES SCREEN,URINE NEGATIVE (NEGATIVE); BENZODIAZEPINES SCREEN,URINE NEGATIVE (NEGATIVE); PHENCYCLIDINE SCREEN,URINE NEGATIVE (NEGATIVE)
[2020-08-12 09:47] LABS: POTASSIUM 5.6 mmol/L (3.5-5.1)
[2020-08-12] MEDS ORDERED: DEXTROSE 50% SYRINGE 50 ML IV STA (09:47)
[2020-08-12 09:50] LABS: BACTERIA,URINE MANY /HPF; CLARITY,URINE CLEAR (CLEAR); COLOR,URINE YELLOW (YELLOW); EPITHELIAL CELLS,URINE FEW /LPF; KETONES,URINE NEGATIVE (NEGATIVE); LEUKOCYTE ESTERASE ,URINE SMALL (NEGATIVE); NITRITE,URINE POSITIVE (NEGATIVE); PROTEIN,URINE DIPSTICK 1+ (NEGATIVE); RBC,URINE 0-5 /HPF (0-5); RENAL EPITHELIAL CELLS,URINE RARE; URINE UROBILINOGEN 0.2 mg/dL (0.2 - 1); WBC,URINE (MAN) 21-50 /HPF (0-5)
[2020-08-12] MEDS ORDERED: CEFTRIAXONE SOD 1 GM in SODIUM CHLORIDE 0.9% 50ML 50 ML IV ONE (10:15)
[2020-08-12] MEDS ORDERED: CEFTRIAXONE SOD 1 GM VIAL ONE (10:54)
[2020-08-12] MEDS: DEXTROSE 50% IV SCH ×2 (10:59→20:30)
[2020-08-12] MEDS: SODIUM CHLORIDE 0.9% IV SCH ×2 (10:59→20:30)
[2020-08-12 19:59] VITALS: BP 190/82
[2020-08-12] MEDS ORDERED: CLONIDINE HCL 0.1 MG TAB PO SCH (23:30)
[2020-08-12] MEDS: TRAZODONE HCL 50 MG TAB PO SCH (23:30)
[2020-08-12] MEDS ORDERED: ATENOLOL 50 MG TAB PO SCH (23:30)
[2020-08-12] MEDS: MIRTAZAPINE 15 MG TAB PO SCH (23:30)
[2020-08-12] MEDS: DONEPEZIL HCL 5 MG TAB PO SCH (23:30)
[2020-08-12] MEDS ORDERED: DEXTROSE 50% SYRINGE 50 ML IV PRN (23:30)
[2020-08-12 23:43] VITALS: BP 190/82
[2020-08-12] MEDS: CEFTRIAXONE SOD 1 GM in SODIUM CHLORIDE 0.9% 50ML 50 ML IV SCH (23:45)
[2020-08-12 23:47] VITALS: BP 190/82
[2020-08-13] VITALS (8 sets, daily range): BP systolic 155–182; BP diastolic 67–81
[2020-08-13] MEDS: OXYCODONE/ACETAMINOPHEN 5-325 1 EACH TABLET PO PRN ×2 (00:05→17:39)
[2020-08-13] MEDS ORDERED: CEFTRIAXONE SOD 1 GM in SODIUM CHLORIDE 0.9% 50ML 50 ML IV SCH (06:00)
[2020-08-13 06:34] LABS: BASOPHILS % 0.3 % (0.0-1.0); EOSINOPHILS % 0.1 % (0.0-6.0); HEMATOCRIT 25.2 % (34.2-44.1); LYMPHOCYTES # (AUTO) 0.8 (1.0-3.2); LYMPHOCYTES % 8.7 % (18.0-39.1); MEAN CORPUSCULAR HEMOGLOBIN 28.7 pg (28-32); MEAN CORPUSCULAR HGB CONC 31.7 g/dL (31-35); MEAN CORPUSCULAR VOLUME 90.3 fL (81-99); MONOCYTES % 11.4 % (4.4-11.3); NEUTROPHILS # (AUTO) 6.9 (2.1-6.9); NEUTROPHILS % 78.9 % (38.7-80.0); PLATELET COUNT 211 x10e3/uL (140-360); RED BLOOD COUNT 2.79 x10e6/uL (3.6-5.1); RED CELL DISTRIBUTION WIDTH 14.4 % (11.7-14.4)
[2020-08-13 06:53] LABS: ANION GAP 12.9 mmol/L (8-16); CALCIUM 7.9 mg/dL (8.4-10.2); CREATININE, SERUM 2.62 mg/dL (0.57-1.11); POTASSIUM 5.9 mmol/L (3.5-5.1)
[2020-08-13] MEDS: INSULIN LISPRO 100 UNIT/1 ML 3ML VIAL SQ SCH ×4 (07:30→21:00)
[2020-08-13 07:49] LABS: THYROID STIMULATING HORMONE 0.994 uIU/mL (0.350-4.940)
[2020-08-13] MEDS ORDERED: SOD POLYSTYRENE SULFONATE SUSP 15 GM/60 ML BTL PO ONE (08:15)
[2020-08-13] MEDS ORDERED: INSULIN GLARGINE 100 UNITS/ML VIAL SQ ONE (08:15)
[2020-08-13] MEDS: FLUOXETINE HCL 20 MG CAP PO SCH (09:07)
[2020-08-13] MEDS: ATORVASTATIN 40 MG TAB PO SCH (09:07)
[2020-08-13] MEDS: MEMANTINE 10 MG TAB PO SCH (09:07)
[2020-08-13] MEDS ORDERED: LISINOPRIL2.5 MG PO (10:46)
[2020-08-13] MEDS: METOPROLOL TARTRATE 50 MG TAB PO SCH ×2 (16:20→21:28)
[2020-08-13] MEDS: MIRTAZAPINE 15 MG TAB PO SCH (21:00)
[2020-08-13] MEDS: TRAZODONE HCL 50 MG TAB PO SCH (21:00)
[2020-08-13] MEDS: DONEPEZIL HCL 5 MG TAB PO SCH (21:00)
[2020-08-13] MEDS: CEFTRIAXONE SOD 1 GM in SODIUM CHLORIDE 0.9% 50ML 50 ML IV SCH (23:45)
[2020-08-14] VITALS (8 sets, daily range): BP systolic 161–205; BP diastolic 57–83
[2020-08-14] MEDS: CEFTRIAXONE SOD 1 GM in SODIUM CHLORIDE 0.9% 50ML 50 ML IV SCH (00:30)
[2020-08-14] MEDS: OXYCODONE/ACETAMINOPHEN 5-325 1 EACH TABLET PO PRN (01:30)
[2020-08-14 05:16] LABS: BASOPHILS # (AUTO) 0.1 (0.0-0.1); BASOPHILS % 0.4 % (0.0-1.0); EOSINOPHILS # (AUTO) 0.1 (0.0-0.4); EOSINOPHILS % 0.9 % (0.0-6.0); HEMATOCRIT 26.2 % (34.2-44.1); HEMOGLOBIN 8.3 g/dL (12.0-16.0); LYMPHOCYTES # (AUTO) 1.2 (1.0-3.2); LYMPHOCYTES % 9.9 % (18.0-39.1); MEAN CORPUSCULAR HEMOGLOBIN 28.4 pg (28-32); MEAN CORPUSCULAR HGB CONC 31.7 g/dL (31-35); MEAN CORPUSCULAR VOLUME 89.7 fL (81-99); MONOCYTES # (AUTO) 1.1 (0.2-0.8); MONOCYTES % 8.8 % (4.4-11.3); NEUTROPHILS # (AUTO) 9.7 (2.1-6.9); NEUTROPHILS % 79.5 % (38.7-80.0); PLATELET COUNT 297 x10e3/uL (140-360); RED BLOOD COUNT 2.92 x10e6/uL (3.6-5.1); RED CELL DISTRIBUTION WIDTH 14.5 % (11.7-14.4)
[2020-08-14 05:40] LABS: ANION GAP 16.1 mmol/L (8-16); CALCIUM 8.4 mg/dL (8.4-10.2); CREATININE, SERUM 2.48 mg/dL (0.57-1.11); POTASSIUM 5.1 mmol/L (3.5-5.1)
[2020-08-14] MEDS: HYDRALAZINE HCL 25 MG TAB PO PRN ×2 (05:50→17:46)
[2020-08-14] MEDS: INSULIN LISPRO 100 UNIT/1 ML 3ML VIAL SQ SCH ×4 (07:30→21:00)
[2020-08-14] MEDS: MEMANTINE 10 MG TAB PO SCH (08:54)
[2020-08-14] MEDS: ATORVASTATIN 40 MG TAB PO SCH (08:54)
[2020-08-14] MEDS: METOPROLOL TARTRATE 50 MG TAB PO SCH ×2 (08:54→21:00)
[2020-08-14] MEDS: FLUOXETINE HCL 20 MG CAP PO SCH (08:54)
[2020-08-14] MEDS ORDERED: IRON SUCROSE 100 MG in SODIUM CHLORIDE 0.9% 100 ML 100 ML IV SCH ×2 (09:00→20:00)
[2020-08-14] MEDS ORDERED: SENNA-S TABLET PO SCH (09:00)
[2020-08-14] MEDS ORDERED: COLLAGENASE 5 GM TUBE TP SCH ×2 (09:00→21:00)
[2020-08-14] MEDS ORDERED: ACETAMINOPHEN 325 MG TAB PO SCH ×2 (09:00→20:00)
[2020-08-14] MEDS ORDERED: NIFEDIPINE CR 30 MG TAB PO ONE (09:30)
[2020-08-14] MEDS: LORATADINE 10 MG TAB PO SCH (10:30)
[2020-08-14] MEDS ORDERED: MIRTAZAPINE 15 MG TAB PO SCH (21:00)
[2020-08-14] MEDS: SENNA-S TABLET PO SCH (22:09)
[2020-08-14] MEDS: TRAZODONE HCL 50 MG TAB PO SCH (22:09)
[2020-08-14] MEDS: DONEPEZIL HCL 5 MG TAB PO SCH (22:09)
[2020-08-15] VITALS: BP 141/50
[2020-08-15 04:00] VITALS: BP 167/58
[2020-08-15] MEDS ORDERED: NIFEDIPINE CR 30 MG TAB PO SCH (06:00)
[2020-08-15 06:09] LABS: CALCIUM 8.5 mg/dL (8.4-10.2); CREATININE, SERUM 2.59 mg/dL (0.57-1.11)
[2020-08-15] MEDS: INSULIN LISPRO 100 UNIT/1 ML 3ML VIAL SQ SCH (07:30)
[2020-08-15 08:38] VITALS: BP 152/62
[2020-08-15] MEDS: LORATADINE 10 MG TAB PO SCH (09:28)
[2020-08-15] MEDS: FLUOXETINE HCL 20 MG CAP PO SCH (09:28)
[2020-08-15] MEDS: SENNA-S TABLET PO SCH (09:28)
[2020-08-15] MEDS: METOPROLOL TARTRATE 50 MG TAB PO SCH (09:28)
[2020-08-15] MEDS: MEMANTINE 10 MG TAB PO SCH (09:28)
[2020-08-15] MEDS: ATORVASTATIN 40 MG TAB PO SCH (09:28)
[2020-08-15] MEDS: OXYCODONE/ACETAMINOPHEN 5-325 1 EACH TABLET PO PRN (09:47)
[2020-08-15 12:28] VITALS: BP 133/54
[2020-08-15 14:31] VITALS: BP 152/62
== END 2020-08-15 14:30 | disposition home or self-care (01) | DRG 689 ==
LOC: ER 08:50 → ERHOLD 10:24 → MED/SURG3 19:23
PROVIDERS: ADMIT Internal Medicine; ATTEND Internal Medicine
DX: N39.0 Urinary tract infection, site not specified (principal); G92 Toxic encephalopathy; E11.649 Type 2 diabetes mellitus with hypoglycemia without coma; T38.3X5A Adverse effect of insulin and oral hypoglycemic [antidiabetic] drugs, initial encounter; Z79.899 Other long term (current) drug therapy; B96.20 Unspecified Escherichia coli [E. coli] as the cause of diseases classified elsewhere; R53.81 Other malaise; D63.1 Anemia in chronic kidney disease; E11.22 Type 2 diabetes mellitus with diabetic chronic kidney disease; I12.9 Hypertensive chronic kidney disease with stage 1 through stage 4 chronic kidney disease, or unspecified chronic kidney disease; N18.30 Chronic kidney disease, stage 3 unspecified; E87.5 Hyperkalemia; M19.90 Unspecified osteoarthritis, unspecified site; F03.90 Unspecified dementia, unspecified severity, without behavioral disturbance, psychotic disturbance, mood disturbance, and anxiety; F32.9 Major depressive disorder, single episode, unspecified; Z20.822 Contact with and (suspected) exposure to COVID-19
CPT/HCPCS: 36415; 51700; 70450; 71045; 72170; 80048; 80053; 80307; 80320; 81001; 82607; 82746; 82948; 83036; 83540; 84132; 84443; 84466; 84484; 85025; 85610; 87086; 87186; 90471; 90714; 93005; 97139; 99251; 99284; J0696; J1756; J1815; J7030; J7799; U0002

== ENCOUNTER 2020-08-30 12:59 | Inpatient (IN) | payer MEDICARE ==
[~2020-08-30] VITALS: Ht 170.2 cm; Wt 129.4 kg
[2020-08-30] MEDS ORDERED: DEXTROSE 50% SYRINGE 50 ML IV ONE (13:14)
[2020-08-30] MEDS ORDERED: SODIUM CHLORIDE 0.9% 1000ML 1,000 ML IV STA (13:20)
[2020-08-30] MEDS ORDERED: DEXTROSE 50% SYRINGE 50 ML IV STA (13:20)
[2020-08-30 13:35] LABS: BASOPHILS % 0.3 % (0.0-1.0); EOSINOPHILS % 0.3 % (0.0-6.0); HEMATOCRIT 28.6 % (34.2-44.1); HEMOGLOBIN 8.7 g/dL (12.0-16.0); LYMPHOCYTES # (AUTO) 0.5 (1.0-3.2); LYMPHOCYTES % 3.1 % (18.0-39.1); MEAN CORPUSCULAR HEMOGLOBIN 27.7 pg (28-32); MEAN CORPUSCULAR HGB CONC 30.4 g/dL (31-35); MEAN CORPUSCULAR VOLUME 91.1 fL (81-99); MONOCYTES # (AUTO) 0.9 (0.2-0.8); MONOCYTES % 5.6 % (4.4-11.3); NEUTROPHILS # (AUTO) 13.7 (2.1-6.9); NEUTROPHILS % 89.5 % (38.7-80.0); PLATELET COUNT 460 x10e3/uL (140-360); RED BLOOD COUNT 3.14 x10e6/uL (3.6-5.1); RED CELL DISTRIBUTION WIDTH 15.8 % (11.7-14.4)
[2020-08-30] MEDS ORDERED: DEXTROSE 5%/0.9% SOD CHL 0 ML IV ONE (13:38)
[2020-08-30] MEDS ORDERED: DEXTROSE 5% 1,000 ML IV ONE (13:40)
[2020-08-30 13:43] LABS: INR 1.04; PROTHROMBIN TIME 14.2 seconds (11.9-14.5)
[2020-08-30 13:44] LABS: PARTIAL THROMBOPLASTIN TIME 40.7 seconds (23.8-35.5)
[2020-08-30] MEDS ORDERED: DEXTROSE 5% 1,000 ML IV SCH (13:45)
[2020-08-30 13:47] LABS: CLARITY,URINE CLOUDY (CLEAR); COLOR,URINE YELLOW (YELLOW); KETONES,URINE TRACE (NEGATIVE); LEUKOCYTE ESTERASE ,URINE LARGE (NEGATIVE); NITRITE,URINE NEGATIVE (NEGATIVE); PROTEIN,URINE DIPSTICK 2+ (NEGATIVE); URINE UROBILINOGEN 0.2 mg/dL (0.2 - 1)
[2020-08-30 13:54] LABS: ALBUMIN 2.7 g/dL (3.5-5.0); ALBUMIN/GLOBULIN RATIO 0.6 (0.8-2.0); ANION GAP 17.2 mmol/L (8-16); CALCIUM 8.1 mg/dL (8.4-10.2); CREATININE, SERUM 7.11 mg/dL (0.57-1.11); MAGNESIUM 2.2 MG/DL (1.3-2.1); POTASSIUM 5.2 mmol/L (3.5-5.1)
[2020-08-30 14:00] LABS: CREATINE KINASE MB 5.3 ng/mL (0-5.0)
[2020-08-30 14:04] LABS: B-TYPE NATRIURETIC PEPTIDE2 1360.1 pg/mL (0-100)
[2020-08-30 14:09] LABS: WBC,URINE (MAN) >50 /HPF (0-5)
[2020-08-30 14:10] LABS: BACTERIA,URINE MODERATE /HPF; EPITHELIAL CELLS,URINE FEW /LPF
[2020-08-30] MEDS ORDERED: VANCOMYCIN 1GM/NS 250 ML 250 ML IV ONE (14:15)
[2020-08-30] MEDS ORDERED: PIPERACILLIN/TAZOBACTAM 2.25 GM in SODIUM CHLORIDE 0.9% 50ML 50 ML IV SCH (15:00)
[2020-08-30] MEDS ORDERED: DEXTROSE 50% SYRINGE 50 ML IV PRN (15:00)
[2020-08-30] MEDS: OCTREOTIDE ACETATE 0.05 MG/ML AMP SQ SCH ×2 (15:14→18:56)
[2020-08-30] MEDS: DEXTROSE 5%/0.9% SOD CHL 1,000 ML IV SCH (15:14)
[2020-08-30] MEDS ORDERED: CEFEPIME HCL 1 GM VIAL IV SCH (16:15)
[2020-08-30 16:30] VITALS: BP 167/56
[2020-08-30] MEDS: CEFEPIME HCL 1GM 1 GM in SODIUM CHLORIDE 0.9% 50ML 50 ML IV SCH (17:14)
[2020-08-30 20:00] VITALS: BP 153/48
[2020-08-30 21:18] LABS: CREATINE KINASE MB 5.2 ng/mL (0-5.0)
[2020-08-30] MEDS: TRAZODONE HCL 50 MG TAB PO SCH (21:53)
[2020-08-30 22:03] VITALS: BP 153/48
[2020-08-31] VITALS (8 sets, daily range): BP systolic 123–163; BP diastolic 43–86
[2020-08-31] MEDS: OCTREOTIDE ACETATE 0.05 MG/ML AMP SQ SCH ×4 (00:50→18:06)
[2020-08-31] MEDS ORDERED: POTASSIUM CHLORIDE 20 MEQ TAB CR PO PRN (03:15)
[2020-08-31] MEDS ORDERED: DEXTROSE 50% SYRINGE 50 ML IV PRN ×2 (03:15→15:15)
[2020-08-31] MEDS ORDERED: SIMETHICONE 80 MG CHEW PO PRN (03:15)
[2020-08-31] MEDS ORDERED: ALBUTEROL/IPRATROPIUM 3 ML NEB NEB PRN (03:15)
[2020-08-31] MEDS ORDERED: CHLORASEPTIC SPRAY 177 ML BTL MM PRN (03:15)
[2020-08-31] MEDS ORDERED: DIPHENHYDRAMINE HCL 25 MG CAP PO PRN (03:15)
[2020-08-31] MEDS: CEFEPIME HCL 1GM 1 GM in SODIUM CHLORIDE 0.9% 50ML 50 ML IV SCH ×3 (05:47→21:30)
[2020-08-31 05:50] LABS: BASOPHILS % 0.4 % (0.0-1.0); EOSINOPHILS # (AUTO) 0.2 (0.0-0.4); EOSINOPHILS % 1.6 % (0.0-6.0); HEMATOCRIT 23.6 % (34.2-44.1); HEMOGLOBIN 7.3 g/dL (12.0-16.0); LYMPHOCYTES # (AUTO) 0.6 (1.0-3.2); LYMPHOCYTES % 5.7 % (18.0-39.1); MEAN CORPUSCULAR HEMOGLOBIN 28.6 pg (28-32); MEAN CORPUSCULAR HGB CONC 30.9 g/dL (31-35); MEAN CORPUSCULAR VOLUME 92.5 fL (81-99); MONOCYTES # (AUTO) 1.2 (0.2-0.8); MONOCYTES % 11.1 % (4.4-11.3); NEUTROPHILS # (AUTO) 8.4 (2.1-6.9); NEUTROPHILS % 80.2 % (38.7-80.0); PLATELET COUNT 352 x10e3/uL (140-360); RED BLOOD COUNT 2.55 x10e6/uL (3.6-5.1); RED CELL DISTRIBUTION WIDTH 15.6 % (11.7-14.4)
[2020-08-31 06:13] LABS: ALBUMIN 2.2 g/dL (3.5-5.0); ALBUMIN/GLOBULIN RATIO 0.7 (0.8-2.0); ANION GAP 15.6 mmol/L (8-16); CALCIUM 7.3 mg/dL (8.4-10.2); CREATININE, SERUM 7.34 mg/dL (0.57-1.11); POTASSIUM 5.6 mmol/L (3.5-5.1)
[2020-08-31] MEDS: DEXTROSE 5%/0.9% SOD CHL 1,000 ML IV SCH (06:13)
[2020-08-31 06:42] LABS: CREATINE KINASE MB 2.7 ng/mL (0-5.0)
[2020-08-31] MEDS: MEMANTINE 10 MG TAB PO SCH (08:06)
[2020-08-31] MEDS ORDERED: SOD POLYSTYRENE SULFONATE SUSP 15 GM/60 ML BTL PO ONE (14:00)
[2020-08-31] MEDS ORDERED: FUROSEMIDE INJ 10 MG/ML 4 ML VIAL IV ONE (14:00)
[2020-08-31] MEDS ORDERED: SODIUM BICARBONATE 650 MG TAB PO SCH (17:00)
[2020-08-31] MEDS ORDERED: VANCOMYCIN 750MG/NS 150ML IVPB 150 ML IV ONE (17:30)
[2020-08-31] MEDS: INSULIN LISPRO 100 UNIT/1 ML 3ML VIAL SQ SCH (17:56)
[2020-08-31] MEDS: SODIUM BICARBONATE 8.4% SYRING 150 ML in DEXTROSE 5% 1,000 ML IV SCH (18:02)
[2020-08-31] MEDS: TRAZODONE HCL 50 MG TAB PO SCH (21:58)
[2020-09-01] VITALS (11 sets, daily range): BP systolic 132–169; BP diastolic 49–76
[2020-09-01] MEDS: OCTREOTIDE ACETATE 0.05 MG/ML AMP SQ SCH ×4 (00:06→18:46)
[2020-09-01 00:27] LABS: CREATINE KINASE MB 1.7 ng/mL (0-5.0)
[2020-09-01 05:31] LABS: BASOPHILS # (AUTO) 0.1 (0.0-0.1); BASOPHILS % 0.6 % (0.0-1.0); EOSINOPHILS # (AUTO) 0.3 (0.0-0.4); EOSINOPHILS % 2.9 % (0.0-6.0); HEMATOCRIT 23.8 % (34.2-44.1); HEMOGLOBIN 7.6 g/dL (12.0-16.0); LYMPHOCYTES # (AUTO) 1.1 (1.0-3.2); LYMPHOCYTES % 9.4 % (18.0-39.1); MEAN CORPUSCULAR HGB CONC 31.9 g/dL (31-35); MEAN CORPUSCULAR VOLUME 90.8 fL (81-99); MONOCYTES # (AUTO) 1.4 (0.2-0.8); MONOCYTES % 12.2 % (4.4-11.3); NEUTROPHILS # (AUTO) 8.3 (2.1-6.9); PLATELET COUNT 391 x10e3/uL (140-360); RED BLOOD COUNT 2.62 x10e6/uL (3.6-5.1); RED CELL DISTRIBUTION WIDTH 15.7 % (11.7-14.4)
[2020-09-01 06:07] LABS: ANION GAP 17.1 mmol/L (8-16); CALCIUM 7.4 mg/dL (8.4-10.2); CREATININE, SERUM 6.65 mg/dL (0.57-1.11); POTASSIUM 5.1 mmol/L (3.5-5.1)
[2020-09-01] MEDS: NYSTATIN 15 GM POWDER UD BTL TOP SCH ×2 (08:04→16:24)
[2020-09-01] MEDS: MEMANTINE 10 MG TAB PO SCH (08:13)
[2020-09-01] MEDS: INSULIN LISPRO 100 UNIT/1 ML 3ML VIAL SQ SCH ×4 (09:44→21:21)
[2020-09-01] MEDS: SODIUM BICARBONATE 8.4% SYRING 150 ML in DEXTROSE 5% 1,000 ML IV SCH ×2 (12:00→21:19)
[2020-09-01] MEDS: ACETAMINOPHEN 325 MG TAB PO PRN (18:48)
[2020-09-01] MEDS ORDERED: CEFEPIME HCL 1 GM VIAL ONE (20:37)
[2020-09-01] MEDS ORDERED: SODIUM CHLORIDE 0.9% 50ML 50 ML ONE (20:38)
[2020-09-01] MEDS: TRAZODONE HCL 50 MG TAB PO SCH ×2 (21:06→21:23)
[2020-09-01] MEDS: CEFEPIME HCL 1GM 1 GM in SODIUM CHLORIDE 0.9% 50ML 50 ML IV SCH (21:23)
[2020-09-02] VITALS (8 sets, daily range): BP systolic 144–197; BP diastolic 58–87
[2020-09-02] MEDS: OCTREOTIDE ACETATE 0.05 MG/ML AMP SQ SCH ×4 (06:00→17:54)
[2020-09-02 06:39] LABS: ANION GAP 14.7 mmol/L (8-16); CALCIUM 7.6 mg/dL (8.4-10.2); CREATININE, SERUM 5.57 mg/dL (0.57-1.11); PHOSPHORUS 5.1 MG/DL (2.3-4.7); POTASSIUM 4.7 mmol/L (3.5-5.1)
[2020-09-02 06:40] LABS: FERRITIN 109.03 ng/mL (4.63-204.00)
[2020-09-02 07:00] LABS: BASOPHILS # (AUTO) 0.1 (0.0-0.1); BASOPHILS % 0.6 % (0.0-1.0); EOSINOPHILS # (AUTO) 0.3 (0.0-0.4); EOSINOPHILS % 3.5 % (0.0-6.0); HEMOGLOBIN 7.8 g/dL (12.0-16.0); LYMPHOCYTES # (AUTO) 0.8 (1.0-3.2); LYMPHOCYTES % 8.3 % (18.0-39.1); MEAN CORPUSCULAR HEMOGLOBIN 27.6 pg (28-32); MEAN CORPUSCULAR HGB CONC 31.2 g/dL (31-35); MEAN CORPUSCULAR VOLUME 88.3 fL (81-99); MONOCYTES # (AUTO) 1.4 (0.2-0.8); MONOCYTES % 14.9 % (4.4-11.3); NEUTROPHILS # (AUTO) 6.9 (2.1-6.9); NEUTROPHILS % 71.9 % (38.7-80.0); PLATELET COUNT 377 x10e3/uL (140-360); RED BLOOD COUNT 2.83 x10e6/uL (3.6-5.1); RED CELL DISTRIBUTION WIDTH 15.5 % (11.7-14.4)
[2020-09-02] MEDS: HYDRALAZINE HCL 20 MG/ML VIAL IV PRN ×3 (08:48→17:54)
[2020-09-02] MEDS: SODIUM BICARBONATE 8.4% SYRING 150 ML in DEXTROSE 5% 1,000 ML IV SCH (08:48)
[2020-09-02] MEDS: COLLAGENASE 5 GM TUBE TOP SCH (08:48)
[2020-09-02] MEDS: NYSTATIN 15 GM POWDER UD BTL TOP SCH ×2 (08:48→17:54)
[2020-09-02] MEDS: MEMANTINE 10 MG TAB PO SCH (08:48)
[2020-09-02] MEDS ORDERED: AMLODIPINE BESYLATE 5 MG TAB PO SCH (11:00)
[2020-09-02] MEDS: INSULIN LISPRO 100 UNIT/1 ML 3ML VIAL SQ SCH ×2 (11:30→16:35)
[2020-09-02] MEDS: SODIUM FERRIC GLUCONATE COMPLX 125 MG in SODIUM CHLORIDE 0.9% 100 ML 100 ML IV SCH (12:30)
[2020-09-02] MEDS: SODIUM CHLORIDE 0.9% 1000ML 1,000 ML IV SCH (12:30)
[2020-09-02] MEDS: NIFEDIPINE CR 30 MG TAB PO SCH (17:54)
[2020-09-02] MEDS ORDERED: CEFEPIME HCL 1 GM VIAL ONE (21:00)
[2020-09-02] MEDS ORDERED: SODIUM CHLORIDE 0.9% 50ML 50 ML ONE (21:01)
[2020-09-02] MEDS: CEFEPIME HCL 1GM 1 GM in SODIUM CHLORIDE 0.9% 50ML 50 ML IV SCH (21:30)
[2020-09-03] VITALS (11 sets, daily range): BP systolic 139–159; BP diastolic 51–91
[2020-09-03] MEDS: OCTREOTIDE ACETATE 0.05 MG/ML AMP SQ SCH ×3 (00:16→12:10)
[2020-09-03] MEDS: SODIUM CHLORIDE 0.9% 1000ML 1,000 ML IV SCH ×2 (03:36→14:16)
[2020-09-03 06:12] LABS: BASOPHILS # (AUTO) 0.1 (0.0-0.1); BASOPHILS % 0.6 % (0.0-1.0); EOSINOPHILS # (AUTO) 0.2 (0.0-0.4); EOSINOPHILS % 1.5 % (0.0-6.0); HEMATOCRIT 27.7 % (34.2-44.1); HEMOGLOBIN 8.6 g/dL (12.0-16.0); LYMPHOCYTES % 7.7 % (18.0-39.1); MEAN CORPUSCULAR HEMOGLOBIN 28.2 pg (28-32); MEAN CORPUSCULAR VOLUME 90.8 fL (81-99); MONOCYTES # (AUTO) 1.9 (0.2-0.8); MONOCYTES % 14.9 % (4.4-11.3); NEUTROPHILS # (AUTO) 9.5 (2.1-6.9); PLATELET COUNT 363 x10e3/uL (140-360); RED BLOOD COUNT 3.05 x10e6/uL (3.6-5.1); RED CELL DISTRIBUTION WIDTH 15.5 % (11.7-14.4)
[2020-09-03 06:32] LABS: ALBUMIN 2.4 g/dL (3.5-5.0); ALBUMIN/GLOBULIN RATIO 0.6 (0.8-2.0); ANION GAP 20.2 mmol/L (8-16); CALCIUM 8.2 mg/dL (8.4-10.2); CREATININE, SERUM 5.65 mg/dL (0.57-1.11); POTASSIUM 5.2 mmol/L (3.5-5.1)
[2020-09-03] MEDS: MEMANTINE 10 MG TAB PO SCH (09:00)
[2020-09-03] MEDS: NIFEDIPINE CR 30 MG TAB PO SCH (09:00)
[2020-09-03] MEDS: NYSTATIN 15 GM POWDER UD BTL TOP SCH ×2 (09:28→17:34)
[2020-09-03] MEDS: COLLAGENASE 5 GM TUBE TOP SCH (09:28)
[2020-09-03] MEDS: INSULIN LISPRO 100 UNIT/1 ML 3ML VIAL SQ SCH ×3 (09:40→16:30)
[2020-09-03] MEDS: SODIUM FERRIC GLUCONATE COMPLX 125 MG in SODIUM CHLORIDE 0.9% 100 ML 100 ML IV SCH (10:25)
[2020-09-03] MEDS: MEGACE 400MG/ 10ML CUP PO SCH ×2 (16:08→17:33)
[2020-09-03] MEDS ORDERED: SODIUM CHLORIDE 0.9% 50ML 50 ML ONE (19:53)
[2020-09-03] MEDS ORDERED: CEFEPIME HCL 1 GM VIAL ONE (19:53)
[2020-09-03] MEDS: HEPARIN SOD (PORCINE) 5,000 UNIT/ML VIAL SC SCH (21:00)
[2020-09-03] MEDS: TRAZODONE HCL 50 MG TAB PO SCH (21:00)
[2020-09-03] MEDS: CEFEPIME HCL 1GM 1 GM in SODIUM CHLORIDE 0.9% 50ML 50 ML IV SCH (21:30)
[2020-09-04 00:36] VITALS: BP 152/64
[2020-09-04 05:27] VITALS: BP 144/55
[2020-09-04] MEDS: SODIUM CHLORIDE 0.9% 1000ML 1,000 ML IV SCH ×2 (05:54→20:12)
[2020-09-04 06:18] LABS: BASOPHILS # (AUTO) 0.1 (0.0-0.1); BASOPHILS % 0.5 % (0.0-1.0); EOSINOPHILS # (AUTO) 0.4 (0.0-0.4); EOSINOPHILS % 3.2 % (0.0-6.0); HEMATOCRIT 23.7 % (34.2-44.1); HEMOGLOBIN 7.4 g/dL (12.0-16.0); LYMPHOCYTES # (AUTO) 0.9 (1.0-3.2); LYMPHOCYTES % 7.4 % (18.0-39.1); MEAN CORPUSCULAR HEMOGLOBIN 27.8 pg (28-32); MEAN CORPUSCULAR HGB CONC 31.2 g/dL (31-35); MEAN CORPUSCULAR VOLUME 89.1 fL (81-99); MONOCYTES # (AUTO) 1.3 (0.2-0.8); MONOCYTES % 11.1 % (4.4-11.3); NEUTROPHILS # (AUTO) 9.2 (2.1-6.9); NEUTROPHILS % 76.8 % (38.7-80.0); PLATELET COUNT 380 x10e3/uL (140-360); RED BLOOD COUNT 2.66 x10e6/uL (3.6-5.1); RED CELL DISTRIBUTION WIDTH 15.4 % (11.7-14.4)
[2020-09-04 06:50] LABS: ANION GAP 17.6 mmol/L (8-16); CALCIUM 8.1 mg/dL (8.4-10.2); CREATININE, SERUM 5.28 mg/dL (0.57-1.11); POTASSIUM 4.6 mmol/L (3.5-5.1)
[2020-09-04 08:38] VITALS: BP 171/97
[2020-09-04 08:45] VITALS: BP 171/97
[2020-09-04] MEDS: HEPARIN SOD (PORCINE) 5,000 UNIT/ML VIAL SC SCH ×2 (09:00→21:00)
[2020-09-04] MEDS: COLLAGENASE 5 GM TUBE TOP SCH (10:10)
[2020-09-04] MEDS: MEGACE 400MG/ 10ML CUP PO SCH (10:10)
[2020-09-04] MEDS: NIFEDIPINE CR 30 MG TAB PO SCH (10:10)
[2020-09-04] MEDS: NYSTATIN 15 GM POWDER UD BTL TOP SCH ×2 (10:10→18:11)
[2020-09-04] MEDS: MEMANTINE 10 MG TAB PO SCH (10:10)
[2020-09-04] MEDS: INSULIN LISPRO 100 UNIT/1 ML 3ML VIAL SQ SCH ×3 (10:11→16:30)
[2020-09-04 13:07] VITALS: BP 175/60
[2020-09-04] MEDS: SODIUM FERRIC GLUCONATE COMPLX 125 MG in SODIUM CHLORIDE 0.9% 100 ML 100 ML IV SCH (13:25)
[2020-09-04 20:11] VITALS: BP 174/61
[2020-09-04] MEDS: TRAZODONE HCL 50 MG TAB PO SCH (21:00)
[2020-09-04] MEDS ORDERED: CEFEPIME HCL 1 GM VIAL ONE (21:24)
[2020-09-04] MEDS ORDERED: SODIUM CHLORIDE 0.9% 50ML 50 ML ONE (21:25)
[2020-09-04] MEDS: CEFEPIME HCL 1GM 1 GM in SODIUM CHLORIDE 0.9% 50ML 50 ML IV SCH (21:30)
[2020-09-05] VITALS (7 sets, daily range): BP systolic 114–150; BP diastolic 50–91
[2020-09-05 06:15] LABS: BASOPHILS # (AUTO) 0.1 (0.0-0.1); BASOPHILS % 0.7 % (0.0-1.0); EOSINOPHILS # (AUTO) 0.4 (0.0-0.4); EOSINOPHILS % 3.6 % (0.0-6.0); HEMATOCRIT 25.2 % (34.2-44.1); HEMOGLOBIN 7.8 g/dL (12.0-16.0); LYMPHOCYTES # (AUTO) 0.9 (1.0-3.2); LYMPHOCYTES % 9.1 % (18.0-39.1); MEAN CORPUSCULAR HEMOGLOBIN 27.8 pg (28-32); MEAN CORPUSCULAR VOLUME 89.7 fL (81-99); MONOCYTES % 10.4 % (4.4-11.3); NEUTROPHILS # (AUTO) 7.5 (2.1-6.9); NEUTROPHILS % 74.8 % (38.7-80.0); PLATELET COUNT 379 x10e3/uL (140-360); RED BLOOD COUNT 2.81 x10e6/uL (3.6-5.1); RED CELL DISTRIBUTION WIDTH 15.6 % (11.7-14.4)
[2020-09-05 06:45] LABS: ANION GAP 18.6 mmol/L (8-16); CREATININE, SERUM 4.94 mg/dL (0.57-1.11); POTASSIUM 4.6 mmol/L (3.5-5.1)
[2020-09-05] MEDS: INSULIN LISPRO 100 UNIT/1 ML 3ML VIAL SQ SCH ×3 (07:30→16:30)
[2020-09-05] MEDS: NIFEDIPINE CR 30 MG TAB PO SCH (09:50)
[2020-09-05] MEDS: MODAFINIL 100 MG TAB PO SCH (09:50)
[2020-09-05] MEDS: MEMANTINE 10 MG TAB PO SCH (09:50)
[2020-09-05] MEDS: MEGACE 400MG/ 10ML CUP PO SCH (09:50)
[2020-09-05] MEDS: NYSTATIN 15 GM POWDER UD BTL TOP SCH ×2 (10:08→17:39)
[2020-09-05] MEDS: HEPARIN SOD (PORCINE) 5,000 UNIT/ML VIAL SC SCH ×2 (10:14→20:53)
[2020-09-05] MEDS: SODIUM FERRIC GLUCONATE COMPLX 125 MG in SODIUM CHLORIDE 0.9% 100 ML 100 ML IV SCH (11:00)
[2020-09-05] MEDS: COLLAGENASE 5 GM TUBE TOP SCH (12:30)
[2020-09-05] MEDS: SODIUM CHLORIDE 0.9% 1000ML 1,000 ML IV SCH (17:00)
[2020-09-05] MEDS ORDERED: SODIUM CHLORIDE 0.9% 50ML 50 ML ONE (20:20)
[2020-09-05] MEDS ORDERED: CEFEPIME HCL 1 GM VIAL ONE (20:20)
[2020-09-05] MEDS: TRAZODONE HCL 50 MG TAB PO SCH (20:53)
[2020-09-05] MEDS: CEFEPIME HCL 1GM 1 GM in SODIUM CHLORIDE 0.9% 50ML 50 ML IV SCH (20:54)
[2020-09-06] VITALS (8 sets, daily range): BP systolic 127–166; BP diastolic 56–72
[2020-09-06] MEDS: SODIUM CHLORIDE 0.9% 1000ML 1,000 ML IV SCH ×2 (00:48→15:06)
[2020-09-06] MEDS: INSULIN LISPRO 100 UNIT/1 ML 3ML VIAL SQ SCH ×4 (07:30→21:40)
[2020-09-06] MEDS: SODIUM FERRIC GLUCONATE COMPLX 125 MG in SODIUM CHLORIDE 0.9% 100 ML 100 ML IV SCH (09:00)
[2020-09-06] MEDS: MEGACE 400MG/ 10ML CUP PO SCH (09:57)
[2020-09-06] MEDS: MEMANTINE 10 MG TAB PO SCH (09:57)
[2020-09-06] MEDS: MODAFINIL 100 MG TAB PO SCH (09:58)
[2020-09-06] MEDS: NYSTATIN 15 GM POWDER UD BTL TOP SCH ×2 (09:58→18:02)
[2020-09-06] MEDS: NIFEDIPINE CR 30 MG TAB PO SCH (09:58)
[2020-09-06] MEDS: HEPARIN SOD (PORCINE) 5,000 UNIT/ML VIAL SC SCH ×2 (10:03→21:39)
[2020-09-06] MEDS: COLLAGENASE 5 GM TUBE TOP SCH (11:49)
[2020-09-06] MEDS: TRAZODONE HCL 50 MG TAB PO SCH (21:37)
[2020-09-07] VITALS (9 sets, daily range): BP systolic 138–153; BP diastolic 67–88
[2020-09-07] MEDS: SODIUM CHLORIDE 0.9% 1000ML 1,000 ML IV SCH ×2 (05:24→20:37)
[2020-09-07 08:46] LABS: ANION GAP 18.7 mmol/L (8-16); CALCIUM 8.1 mg/dL (8.4-10.2); CREATININE, SERUM 5.22 mg/dL (0.57-1.11); POTASSIUM 4.7 mmol/L (3.5-5.1)
[2020-09-07] MEDS: MODAFINIL 100 MG TAB PO SCH (09:29)
[2020-09-07] MEDS: MEGACE 400MG/ 10ML CUP PO SCH (09:29)
[2020-09-07] MEDS: SODIUM FERRIC GLUCONATE COMPLX 125 MG in SODIUM CHLORIDE 0.9% 100 ML 100 ML IV SCH (09:29)
[2020-09-07] MEDS: NYSTATIN 15 GM POWDER UD BTL TOP SCH ×2 (09:29→17:18)
[2020-09-07] MEDS: NIFEDIPINE CR 30 MG TAB PO SCH (09:29)
[2020-09-07] MEDS: COLLAGENASE 5 GM TUBE TOP SCH (09:29)
[2020-09-07] MEDS: MEMANTINE 10 MG TAB PO SCH (09:29)
[2020-09-07] MEDS: HEPARIN SOD (PORCINE) 5,000 UNIT/ML VIAL SC SCH ×2 (09:42→21:00)
[2020-09-07] MEDS: INSULIN LISPRO 100 UNIT/1 ML 3ML VIAL SQ SCH ×3 (11:30→20:38)
[2020-09-07] MEDS: TRAZODONE HCL 50 MG TAB PO SCH (21:00)
[2020-09-07] MEDS: CEFEPIME HCL 1GM 1 GM in SODIUM CHLORIDE 0.9% 50ML 50 ML IV SCH (21:00)
[2020-09-08] VITALS (9 sets, daily range): BP systolic 125–167; BP diastolic 53–99
[2020-09-08 05:58] LABS: BASOPHILS # (AUTO) 0.1 (0.0-0.1); BASOPHILS % 0.5 % (0.0-1.0); EOSINOPHILS # (AUTO) 0.3 (0.0-0.4); EOSINOPHILS % 2.8 % (0.0-6.0); HEMATOCRIT 25.7 % (34.2-44.1); LYMPHOCYTES # (AUTO) 0.9 (1.0-3.2); MEAN CORPUSCULAR HEMOGLOBIN 28.5 pg (28-32); MEAN CORPUSCULAR HGB CONC 31.1 g/dL (31-35); MEAN CORPUSCULAR VOLUME 91.5 fL (81-99); MONOCYTES # (AUTO) 1.1 (0.2-0.8); MONOCYTES % 9.1 % (4.4-11.3); NEUTROPHILS % 77.6 % (38.7-80.0); PLATELET COUNT 405 x10e3/uL (140-360); RED BLOOD COUNT 2.81 x10e6/uL (3.6-5.1); RED CELL DISTRIBUTION WIDTH 15.9 % (11.7-14.4)
[2020-09-08 06:09] LABS: ANION GAP 18.6 mmol/L (8-16); CALCIUM 8.3 mg/dL (8.4-10.2); CREATININE, SERUM 5.46 mg/dL (0.57-1.11); POTASSIUM 4.6 mmol/L (3.5-5.1)
[2020-09-08] MEDS ORDERED: CEFEPIME HCL 1 GM VIAL IV SCH (09:00)
[2020-09-08] MEDS: MODAFINIL 100 MG TAB PO SCH (10:17)
[2020-09-08] MEDS: NIFEDIPINE CR 30 MG TAB PO SCH (10:17)
[2020-09-08] MEDS: MEGACE 400MG/ 10ML CUP PO SCH (10:17)
[2020-09-08] MEDS: MEMANTINE 10 MG TAB PO SCH (10:17)
[2020-09-08] MEDS: COLLAGENASE 5 GM TUBE TOP SCH (10:18)
[2020-09-08] MEDS: SODIUM FERRIC GLUCONATE COMPLX 125 MG in SODIUM CHLORIDE 0.9% 100 ML 100 ML IV SCH (10:18)
[2020-09-08] MEDS: HEPARIN SOD (PORCINE) 5,000 UNIT/ML VIAL SC SCH ×2 (10:23→20:07)
[2020-09-08] MEDS: INSULIN LISPRO 100 UNIT/1 ML 3ML VIAL SQ SCH ×2 (11:30→16:30)
[2020-09-08] MEDS: SODIUM CHLORIDE 0.9% 1000ML 1,000 ML IV SCH (13:50)
[2020-09-08] MEDS ORDERED: HEPARIN SOD (PORCINE) 1000 UNIT/ML SDV ONE (16:08)
[2020-09-08] MEDS ORDERED: LIDOCAINE HCL 1% LOCAL INJ 20 ML VIAL ONE (16:17)
[2020-09-08] MEDS: FUROSEMIDE INJ 10 MG/ML 4 ML VIAL IV SCH (17:30)
[2020-09-08] MEDS: CEFEPIME HCL 1GM 1 GM in SODIUM CHLORIDE 0.9% 50ML 50 ML IV SCH (20:07)
[2020-09-08] MEDS: TRAZODONE HCL 50 MG TAB PO SCH (20:07)
[2020-09-09 05:31] VITALS: BP 152/90
[2020-09-09 06:53] LABS: ANION GAP 19.7 mmol/L (8-16); CALCIUM 8.2 mg/dL (8.4-10.2); CREATININE, SERUM 5.55 mg/dL (0.57-1.11); POTASSIUM 4.7 mmol/L (3.5-5.1)
[2020-09-09] MEDS: INSULIN LISPRO 100 UNIT/1 ML 3ML VIAL SQ SCH ×3 (07:30→16:30)
[2020-09-09 07:56] VITALS: BP 157/78
[2020-09-09 08:03] VITALS: BP 157/78
[2020-09-09 08:57] LABS: BASOPHILS # (AUTO) 0.1 (0.0-0.1); BASOPHILS % 0.5 % (0.0-1.0); EOSINOPHILS # (AUTO) 0.4 (0.0-0.4); EOSINOPHILS % 3.6 % (0.0-6.0); HEMATOCRIT 23.6 % (34.2-44.1); HEMOGLOBIN 7.2 g/dL (12.0-16.0); LYMPHOCYTES % 9.2 % (18.0-39.1); MEAN CORPUSCULAR HEMOGLOBIN 28.5 pg (28-32); MEAN CORPUSCULAR HGB CONC 30.5 g/dL (31-35); MEAN CORPUSCULAR VOLUME 93.3 fL (81-99); NEUTROPHILS # (AUTO) 8.2 (2.1-6.9); NEUTROPHILS % 75.1 % (38.7-80.0); PLATELET COUNT 394 x10e3/uL (140-360); RED BLOOD COUNT 2.53 x10e6/uL (3.6-5.1); RED CELL DISTRIBUTION WIDTH 16.1 % (11.7-14.4)
[2020-09-09] MEDS: FUROSEMIDE INJ 10 MG/ML 4 ML VIAL IV SCH (09:00)
[2020-09-09] MEDS: MODAFINIL 100 MG TAB PO SCH (09:00)
[2020-09-09] MEDS: MEMANTINE 10 MG TAB PO SCH (09:00)
[2020-09-09] MEDS: MEGACE 400MG/ 10ML CUP PO SCH (09:00)
[2020-09-09] MEDS: SODIUM FERRIC GLUCONATE COMPLX 125 MG in SODIUM CHLORIDE 0.9% 100 ML 100 ML IV SCH (09:26)
[2020-09-09] MEDS: COLLAGENASE 5 GM TUBE TOP SCH (09:26)
[2020-09-09] MEDS: HEPARIN SOD (PORCINE) 5,000 UNIT/ML VIAL SC SCH ×2 (09:28→23:24)
[2020-09-09] MEDS ORDERED: SODIUM CHLORIDE 0.9% 250ML 250 ML IV ONE (11:15)
[2020-09-09] MEDS: NIFEDIPINE CR 30 MG TAB PO SCH (11:45)
[2020-09-09 16:05] VITALS: BP 164/64
[2020-09-09] MEDS: ACETAMINOPHEN 325 MG TAB PO PRN (16:20)
[2020-09-09] MEDS ORDERED: MANNITOL 25% 12.5GM/50 ML VIAL IV PRN (18:00)
[2020-09-09] MEDS ORDERED: SODIUM CHLORIDE 0.9% 1000ML 2,000 ML IV PRN (18:00)
[2020-09-09] MEDS ORDERED: HEPARIN SOD (PORCINE) 1000 UNIT/ML SDV IV PRN (18:00)
[2020-09-09 20:10] VITALS: BP 159/71
[2020-09-09 21:04] VITALS: BP 159/71
[2020-09-09] MEDS: TRAZODONE HCL 50 MG TAB PO SCH (23:23)
[2020-09-09] MEDS: CEFEPIME HCL 1GM 1 GM in SODIUM CHLORIDE 0.9% 50ML 50 ML IV SCH (23:23)
[2020-09-10] VITALS (9 sets, daily range): BP systolic 132–227; BP diastolic 63–110
[2020-09-10 06:08] LABS: BASOPHILS # (AUTO) 0.1 (0.0-0.1); BASOPHILS % 0.5 % (0.0-1.0); EOSINOPHILS # (AUTO) 0.4 (0.0-0.4); EOSINOPHILS % 3.2 % (0.0-6.0); HEMATOCRIT 30.3 % (34.2-44.1); MEAN CORPUSCULAR HEMOGLOBIN 28.9 pg (28-32); MONOCYTES % 8.7 % (4.4-11.3); NEUTROPHILS # (AUTO) 8.6 (2.1-6.9); NEUTROPHILS % 75.3 % (38.7-80.0); PLATELET COUNT 359 x10e3/uL (140-360); RED BLOOD COUNT 3.46 x10e6/uL (3.6-5.1)
[2020-09-10 06:19] LABS: MEAN CORPUSCULAR VOLUME 87.6 fL (81-99)
[2020-09-10 06:44] LABS: ANION GAP 17.1 mmol/L (8-16); CALCIUM 8.3 mg/dL (8.4-10.2); CREATININE, SERUM 3.96 mg/dL (0.57-1.11); POTASSIUM 4.1 mmol/L (3.5-5.1)
[2020-09-10] MEDS: INSULIN LISPRO 100 UNIT/1 ML 3ML VIAL SQ SCH ×4 (07:30→20:20)
[2020-09-10] MEDS: FUROSEMIDE INJ 10 MG/ML 4 ML VIAL IV SCH (09:40)
[2020-09-10] MEDS: MEMANTINE 10 MG TAB PO SCH (09:41)
[2020-09-10] MEDS: MODAFINIL 100 MG TAB PO SCH (09:41)
[2020-09-10] MEDS: NIFEDIPINE CR 30 MG TAB PO SCH (10:22)
[2020-09-10] MEDS: COLLAGENASE 5 GM TUBE TOP SCH (10:23)
[2020-09-10] MEDS: HEPARIN SOD (PORCINE) 5,000 UNIT/ML VIAL SC SCH (10:25)
[2020-09-10] MEDS ORDERED: SODIUM CHLORIDE 0.9% 250ML 500 ML IV PRN (11:15)
[2020-09-10] MEDS ORDERED: ALBUMIN 25% 12.5GM 0.25 GM/ML BTL IV PRN (11:15)
[2020-09-10] MEDS: TRAZODONE HCL 50 MG TAB PO SCH (21:00)
[2020-09-10] MEDS ORDERED: METOPROLOL TARTRATE INJ 1 MG/ML VIAL IV ONE (22:00)
[2020-09-10] MEDS: HYDRALAZINE HCL 20 MG/ML VIAL IV PRN (23:34)
[2020-09-11] VITALS (11 sets, daily range): BP systolic 126–192; BP diastolic 56–102
[2020-09-11] MEDS ORDERED: SODIUM CHLORIDE 0.9% 50ML 50 ML ONE (00:49)
[2020-09-11] MEDS: CEFEPIME HCL 1GM 1 GM in SODIUM CHLORIDE 0.9% 50ML 50 ML IV SCH (01:00)
[2020-09-11] MEDS ORDERED: METOPROLOL TARTRATE 50 MG TAB PO STA (01:07)
[2020-09-11] MEDS ORDERED: METOPROLOL TARTRATE INJ 1 MG/ML VIAL IV PRN (01:15)
[2020-09-11] MEDS ORDERED: NIFEDIPINE CR 30 MG TAB PO ONE (01:15)
[2020-09-11] MEDS: ACETAMINOPHEN 325 MG TAB PO PRN (01:25)
[2020-09-11] MEDS ORDERED: AMIODARONE HCL 150 MG in DEXTROSE 5% 100ML 100 ML IV ONE (05:45)
[2020-09-11 05:52] LABS: BASOPHILS # (AUTO) 0.1 (0.0-0.1); BASOPHILS % 0.6 % (0.0-1.0); EOSINOPHILS # (AUTO) 0.2 (0.0-0.4); EOSINOPHILS % 1.4 % (0.0-6.0); HEMATOCRIT 31.3 % (34.2-44.1); HEMOGLOBIN 10.1 g/dL (12.0-16.0); LYMPHOCYTES % 6.3 % (18.0-39.1); MEAN CORPUSCULAR HEMOGLOBIN 28.6 pg (28-32); MEAN CORPUSCULAR HGB CONC 32.3 g/dL (31-35); MEAN CORPUSCULAR VOLUME 88.7 fL (81-99); MONOCYTES # (AUTO) 1.3 (0.2-0.8); MONOCYTES % 8.2 % (4.4-11.3); NEUTROPHILS # (AUTO) 12.5 (2.1-6.9); NEUTROPHILS % 80.3 % (38.7-80.0); PLATELET COUNT 406 x10e3/uL (140-360); RED BLOOD COUNT 3.53 x10e6/uL (3.6-5.1); RED CELL DISTRIBUTION WIDTH 16.4 % (11.7-14.4)
[2020-09-11 06:21] LABS: CALCIUM 8.3 mg/dL (8.4-10.2); CREATININE, SERUM 3.27 mg/dL (0.57-1.11)
[2020-09-11] MEDS: COLLAGENASE 5 GM TUBE TOP SCH (07:40)
[2020-09-11] MEDS: AMIODARONE HCL 200 MG TAB PO SCH ×2 (07:41→17:00)
[2020-09-11] MEDS: NIFEDIPINE CR 30 MG TAB PO SCH ×2 (07:42→17:00)
[2020-09-11] MEDS: MODAFINIL 100 MG TAB PO SCH (07:42)
[2020-09-11] MEDS: METOPROLOL TARTRATE 50 MG TAB PO SCH (07:42)
[2020-09-11] MEDS: MEMANTINE 10 MG TAB PO SCH (07:42)
[2020-09-11] MEDS: FUROSEMIDE INJ 10 MG/ML 4 ML VIAL IV SCH (09:00)
[2020-09-11] MEDS ORDERED: NIFEDIPINE CR 30 MG TAB PO SCH (09:00)
[2020-09-11] MEDS ORDERED: MIDAZOLAM HCL 2 MG/2 ML VIAL ONE (10:14)
[2020-09-11] MEDS ORDERED: FENTANYL CITRATE/PF 100MCG/2 ML INJ ONE (10:15)
[2020-09-11] MEDS ORDERED: SODIUM CHLORIDE 0.9% 250ML 250 ML ONE (10:27)
[2020-09-11] MEDS ORDERED: LIDOCAINE HCL 1% LOCAL INJ 20 ML VIAL ONE (10:27)
[2020-09-11] MEDS ORDERED: HEPARIN SOD (PORCINE) 1000 UNIT/ML SDV ONE (10:29)
[2020-09-11] MEDS: INSULIN LISPRO 100 UNIT/1 ML 3ML VIAL SQ SCH ×2 (11:30→16:30)
[2020-09-11] MEDS ORDERED: APIXAB 2.5 MG TABLET PO SCH (17:00)
[2020-09-11] MEDS: ATORVASTATIN 40 MG TAB PO SCH (21:00)
[2020-09-11] MEDS: TRAZODONE HCL 50 MG TAB PO SCH (21:00)
[2020-09-12] VITALS: BP_SYST 151; BP_DIAS 65; BP_DIAS 68
[2020-09-12 07:10] LABS: BASOPHILS # (AUTO) 0.1 (0.0-0.1); BASOPHILS % 0.5 % (0.0-1.0); EOSINOPHILS # (AUTO) 0.1 (0.0-0.4); EOSINOPHILS % 0.8 % (0.0-6.0); HEMATOCRIT 32.4 % (34.2-44.1); HEMOGLOBIN 9.9 g/dL (12.0-16.0); LYMPHOCYTES % 6.1 % (18.0-39.1); MEAN CORPUSCULAR HGB CONC 30.6 g/dL (31-35); MEAN CORPUSCULAR VOLUME 91.5 fL (81-99); MONOCYTES # (AUTO) 1.1 (0.2-0.8); MONOCYTES % 7.2 % (4.4-11.3); NEUTROPHILS # (AUTO) 12.8 (2.1-6.9); NEUTROPHILS % 82.7 % (38.7-80.0); PLATELET COUNT 443 x10e3/uL (140-360); RED BLOOD COUNT 3.54 x10e6/uL (3.6-5.1); RED CELL DISTRIBUTION WIDTH 16.8 % (11.7-14.4)
[2020-09-12] MEDS: INSULIN LISPRO 100 UNIT/1 ML 3ML VIAL SQ SCH ×3 (07:30→16:30)
[2020-09-12 07:35] LABS: ANION GAP 26.1 mmol/L (8-16); CALCIUM 8.8 mg/dL (8.4-10.2); CREATININE, SERUM 3.46 mg/dL (0.57-1.11); POTASSIUM 4.1 mmol/L (3.5-5.1)
[2020-09-12 08:32] VITALS: BP 166/63
[2020-09-12 08:47] VITALS: BP 166/63
[2020-09-12] MEDS: APIXAB 2.5 MG TABLET PO SCH ×2 (09:11→17:45)
[2020-09-12] MEDS: METOPROLOL TARTRATE 50 MG TAB PO SCH (09:11)
[2020-09-12] MEDS: FUROSEMIDE INJ 10 MG/ML 4 ML VIAL IV SCH (09:11)
[2020-09-12] MEDS: MEMANTINE 10 MG TAB PO SCH (09:11)
[2020-09-12] MEDS: AMIODARONE HCL 200 MG TAB PO SCH ×2 (09:11→17:49)
[2020-09-12] MEDS: NIFEDIPINE CR 30 MG TAB PO SCH ×2 (09:12→17:46)
[2020-09-12] MEDS: COLLAGENASE 5 GM TUBE TOP SCH (09:12)
[2020-09-12 12:11] VITALS: BP 129/58
[2020-09-12] MEDS: MODAFINIL 100 MG TAB PO SCH (14:54)
[2020-09-12 16:10] VITALS: BP 115/63
[2020-09-12] MEDS: ATORVASTATIN 40 MG TAB PO SCH (19:57)
[2020-09-12 20:22] VITALS: BP 137/75
[2020-09-12] MEDS ORDERED: TRAZODONE HCL 50 MG TAB PO SCH (21:00)
[2020-09-12] MEDS ORDERED: DIPHENHYDRAMINE HCL INJ 50 MG/ML VIAL IV ONE (21:30)
[2020-09-13] VITALS (7 sets, daily range): BP systolic 134–164; BP diastolic 54–95
[2020-09-13] MEDS ORDERED: DIPHENHYDRAMINE HCL INJ 50 MG/ML VIAL ONE (02:07)
[2020-09-13] MEDS ORDERED: DIPHENHYDRAMINE HCL INJ 50 MG/ML VIAL IV ONE (02:15)
[2020-09-13 06:10] LABS: BASOPHILS # (AUTO) 0.1 (0.0-0.1); BASOPHILS % 0.3 % (0.0-1.0); EOSINOPHILS # (AUTO) 0.1 (0.0-0.4); EOSINOPHILS % 0.6 % (0.0-6.0); HEMATOCRIT 28.2 % (34.2-44.1); HEMOGLOBIN 8.9 g/dL (12.0-16.0); LYMPHOCYTES # (AUTO) 0.8 (1.0-3.2); LYMPHOCYTES % 5.6 % (18.0-39.1); MEAN CORPUSCULAR HEMOGLOBIN 28.8 pg (28-32); MEAN CORPUSCULAR HGB CONC 31.6 g/dL (31-35); MEAN CORPUSCULAR VOLUME 91.3 fL (81-99); MONOCYTES # (AUTO) 1.3 (0.2-0.8); MONOCYTES % 8.8 % (4.4-11.3); NEUTROPHILS % 82.8 % (38.7-80.0); PLATELET COUNT 389 x10e3/uL (140-360); RED BLOOD COUNT 3.09 x10e6/uL (3.6-5.1)
[2020-09-13 06:25] LABS: ANION GAP 22.9 mmol/L (8-16); CALCIUM 8.7 mg/dL (8.4-10.2); CREATININE, SERUM 4.51 mg/dL (0.57-1.11); POTASSIUM 3.9 mmol/L (3.5-5.1)
[2020-09-13] MEDS: INSULIN LISPRO 100 UNIT/1 ML 3ML VIAL SQ SCH ×3 (07:30→16:30)
[2020-09-13] MEDS: NIFEDIPINE CR 30 MG TAB PO SCH ×2 (10:15→17:00)
[2020-09-13] MEDS: AMIODARONE HCL 200 MG TAB PO SCH ×2 (10:15→17:00)
[2020-09-13] MEDS: APIXAB 2.5 MG TABLET PO SCH ×2 (10:15→17:00)
[2020-09-13] MEDS: MEMANTINE 10 MG TAB PO SCH (10:15)
[2020-09-13] MEDS: METOPROLOL TARTRATE 50 MG TAB PO SCH (10:15)
[2020-09-13] MEDS: MODAFINIL 100 MG TAB PO SCH (10:16)
[2020-09-13] MEDS: COLLAGENASE 5 GM TUBE TOP SCH (12:06)
[2020-09-13] MEDS: ATORVASTATIN 40 MG TAB PO SCH (20:48)
[2020-09-14] VITALS (7 sets, daily range): BP systolic 152–169; BP diastolic 71–90
[2020-09-14] MEDS: INSULIN LISPRO 100 UNIT/1 ML 3ML VIAL SQ SCH ×3 (07:30→16:30)
[2020-09-14 07:53] LABS: BASOPHILS # (AUTO) 0.1 (0.0-0.1); BASOPHILS % 0.4 % (0.0-1.0); EOSINOPHILS # (AUTO) 0.2 (0.0-0.4); EOSINOPHILS % 1.8 % (0.0-6.0); HEMATOCRIT 28.7 % (34.2-44.1); HEMOGLOBIN 9.2 g/dL (12.0-16.0); LYMPHOCYTES # (AUTO) 0.9 (1.0-3.2); LYMPHOCYTES % 7.1 % (18.0-39.1); MEAN CORPUSCULAR HEMOGLOBIN 28.8 pg (28-32); MEAN CORPUSCULAR HGB CONC 32.1 g/dL (31-35); MEAN CORPUSCULAR VOLUME 89.7 fL (81-99); MONOCYTES # (AUTO) 1.2 (0.2-0.8); MONOCYTES % 9.8 % (4.4-11.3); NEUTROPHILS # (AUTO) 9.6 (2.1-6.9); NEUTROPHILS % 78.5 % (38.7-80.0); PLATELET COUNT 359 x10e3/uL (140-360); RED CELL DISTRIBUTION WIDTH 16.9 % (11.7-14.4)
[2020-09-14 08:16] LABS: ANION GAP 20.6 mmol/L (8-16); CALCIUM 8.5 mg/dL (8.4-10.2); CREATININE, SERUM 3.39 mg/dL (0.57-1.11); POTASSIUM 3.6 mmol/L (3.5-5.1)
[2020-09-14] MEDS: APIXAB 2.5 MG TABLET PO SCH ×2 (09:43→17:13)
[2020-09-14] MEDS: AMIODARONE HCL 200 MG TAB PO SCH ×2 (09:43→17:13)
[2020-09-14] MEDS: COLLAGENASE 5 GM TUBE TOP SCH (09:44)
[2020-09-14] MEDS: METOPROLOL TARTRATE 50 MG TAB PO SCH ×3 (09:44→17:14)
[2020-09-14] MEDS: NIFEDIPINE CR 30 MG TAB PO SCH ×2 (09:44→17:14)
[2020-09-14] MEDS: MEMANTINE 10 MG TAB PO SCH (09:44)
[2020-09-14] MEDS: MODAFINIL 100 MG TAB PO SCH (09:44)
[2020-09-14] MEDS: MEGACE 400MG/ 10ML CUP PO SCH (14:12)
[2020-09-14] MEDS ORDERED: FUROSEMIDE INJ 10 MG/ML 4 ML VIAL IV ONE (14:30)
[2020-09-14] MEDS: ATORVASTATIN 40 MG TAB PO SCH (21:17)
[2020-09-14] MEDS: ONDANSETRON HCL INJ 2MG/ML 2ML 2 MG/ML VIAL IV PRN (21:31)
[2020-09-15] VITALS (9 sets, daily range): BP systolic 98–163; BP diastolic 50–76
[2020-09-15 06:09] LABS: ANION GAP 17.6 mmol/L (8-16); CALCIUM 8.5 mg/dL (8.4-10.2); CREATININE, SERUM 4.32 mg/dL (0.57-1.11); POTASSIUM 3.6 mmol/L (3.5-5.1)
[2020-09-15] MEDS: ONDANSETRON HCL INJ 2MG/ML 2ML 2 MG/ML VIAL IV PRN (06:10)
[2020-09-15] MEDS: AMIODARONE HCL 200 MG TAB PO SCH ×2 (09:10→17:00)
[2020-09-15] MEDS: APIXAB 2.5 MG TABLET PO SCH ×2 (09:10→17:00)
[2020-09-15] MEDS: METOPROLOL TARTRATE 50 MG TAB PO SCH ×2 (09:11→17:00)
[2020-09-15] MEDS: MODAFINIL 100 MG TAB PO SCH (09:11)
[2020-09-15] MEDS: NIFEDIPINE CR 30 MG TAB PO SCH ×2 (09:11→17:00)
[2020-09-15] MEDS: MEMANTINE 10 MG TAB PO SCH (09:11)
[2020-09-15] MEDS: MEGACE 400MG/ 10ML CUP PO SCH (09:11)
[2020-09-15] MEDS: INSULIN LISPRO 100 UNIT/1 ML 3ML VIAL SQ SCH ×3 (09:13→16:30)
[2020-09-15] MEDS: ACETAMINOPHEN 325 MG TAB PO PRN (09:17)
[2020-09-15] MEDS ORDERED: HEPARIN SOD (PORCINE) 1000 UNIT/ML SDV IV PRN (16:00)
[2020-09-15] MEDS: ONDANSETRON HCL 4 MG ORAL DISINTEGRATING TAB PO PRN (21:11)
[2020-09-15] MEDS: COLLAGENASE 5 GM TUBE TOP SCH (21:15)
[2020-09-15] MEDS: ATORVASTATIN 40 MG TAB PO SCH (21:20)
[2020-09-16] VITALS: BP 156/62
[2020-09-16] MEDS: ONDANSETRON HCL 4 MG ORAL DISINTEGRATING TAB PO PRN (03:15)
[2020-09-16 04:00] VITALS: BP 162/66
[2020-09-16] MEDS: INSULIN LISPRO 100 UNIT/1 ML 3ML VIAL SQ SCH (07:30)
[2020-09-16 08:38] VITALS: BP 150/78
[2020-09-16] MEDS: MODAFINIL 100 MG TAB PO SCH (10:04)
[2020-09-16] MEDS: APIXAB 2.5 MG TABLET PO SCH (10:04)
[2020-09-16] MEDS: METOPROLOL TARTRATE 50 MG TAB PO SCH (10:05)
[2020-09-16] MEDS: NIFEDIPINE CR 30 MG TAB PO SCH (10:05)
[2020-09-16] MEDS: AMIODARONE HCL 200 MG TAB PO SCH (10:05)
[2020-09-16] MEDS: MEGACE 400MG/ 10ML CUP PO SCH (10:06)
[2020-09-16] MEDS: MEMANTINE 10 MG TAB PO SCH (10:06)
[2020-09-16 10:40] VITALS: BP 150/78
[2020-09-16 11:49] VITALS: BP 156/71
== END 2020-09-16 13:23 | DRG 871 ==
LOC: ER 13:38 → ERHOLD 15:11 → ICU 16:41 → MED/SURG3 09-01 17:35
PROVIDERS: ADMIT Internal Medicine; ATTEND Internal Medicine
PROC: 02HV33Z Insertion of Infusion Device into Superior Vena Cava, Percutaneous Approach (ICD-10-PCS; principal; 2020-09-01)
PROC: B548ZZA Ultrasonography of Superior Vena Cava, Guidance (ICD-10-PCS; 2020-09-01)
PROC: 02HV33Z Insertion of Infusion Device into Superior Vena Cava, Percutaneous Approach (ICD-10-PCS; 2020-09-08)
PROC: B5181ZA Fluoroscopy of Superior Vena Cava using Low Osmolar Contrast, Guidance (ICD-10-PCS; 2020-09-08)
PROC: 5A1D70Z Performance of Urinary Filtration, Intermittent, Less than 6 Hours Per Day (ICD-10-PCS; 2020-09-09)
PROC: 30233N1 Transfusion of Nonautologous Red Blood Cells into Peripheral Vein, Percutaneous Approach (ICD-10-PCS; 2020-09-09)
PROC: 5A1D70Z Performance of Urinary Filtration, Intermittent, Less than 6 Hours Per Day (ICD-10-PCS; 2020-09-10)
PROC: 02PY33Z Removal of Infusion Device from Great Vessel, Percutaneous Approach (ICD-10-PCS; 2020-09-11)
PROC: 02HV33Z Insertion of Infusion Device into Superior Vena Cava, Percutaneous Approach (ICD-10-PCS; 2020-09-11)
PROC: 0JH63XZ Insertion of Tunneled Vascular Access Device into Chest Subcutaneous Tissue and Fascia, Percutaneous Approach (ICD-10-PCS; 2020-09-11)
PROC: B5181ZA Fluoroscopy of Superior Vena Cava using Low Osmolar Contrast, Guidance (ICD-10-PCS; 2020-09-11)
PROC: 5A1D70Z Performance of Urinary Filtration, Intermittent, Less than 6 Hours Per Day (ICD-10-PCS; 2020-09-11)
PROC: 5A1D70Z Performance of Urinary Filtration, Intermittent, Less than 6 Hours Per Day (ICD-10-PCS; 2020-09-13)
PROC: 5A1D70Z Performance of Urinary Filtration, Intermittent, Less than 6 Hours Per Day (ICD-10-PCS; 2020-09-15)
DX: A41.51 Sepsis due to Escherichia coli [E. coli] (principal); G93.41 Metabolic encephalopathy; E87.2 Acidosis; N17.9 Acute kidney failure, unspecified; N18.5 Chronic kidney disease, stage 5; N39.0 Urinary tract infection, site not specified; E46 Unspecified protein-calorie malnutrition; Z68.41 Body mass index [BMI] 40.0-44.9, adult; I13.2 Hypertensive heart and chronic kidney disease with heart failure and with stage 5 chronic kidney disease, or end stage renal disease; E11.649 Type 2 diabetes mellitus with hypoglycemia without coma; E11.22 Type 2 diabetes mellitus with diabetic chronic kidney disease; D50.0 Iron deficiency anemia secondary to blood loss (chronic); L89.622 Pressure ulcer of left heel, stage 2; L89.310 Pressure ulcer of right buttock, unstageable; L89.512 Pressure ulcer of right ankle, stage 2; E87.5 Hyperkalemia; Z87.440 Personal history of urinary (tract) infections; Z87.898 Personal history of other specified conditions; Z90.49 Acquired absence of other specified parts of digestive tract; Z88.2 Allergy status to sulfonamides; Z88.8 Allergy status to other drugs, medicaments and biological substances; E66.01 Morbid (severe) obesity due to excess calories; Z96.651 Presence of right artificial knee joint; Z83.3 Family history of diabetes mellitus; Z82.49 Family history of ischemic heart disease and other diseases of the circulatory system; D63.1 Anemia in chronic kidney disease; B88.8 Other specified infestations; L89.610 Pressure ulcer of right heel, unstageable; Z20.822 Contact with and (suspected) exposure to COVID-19; F03.90 Unspecified dementia, unspecified severity, without behavioral disturbance, psychotic disturbance, mood disturbance, and anxiety; I50.9 Heart failure, unspecified; N26.1 Atrophy of kidney (terminal); I48.91 Unspecified atrial fibrillation; Z99.2 Dependence on renal dialysis
CPT/HCPCS: 36415; 36556; 36558; 51700; 70450; 70551; 71045; 74150; 74470; 76770; 76937; 77001; 80048; 80053; 81001; 82550; 82553; 82728; 82948; 83036; 83540; 83605; 83735; 83880; 84100; 84132; 84466; 84484; 85025; 85610; 85730; 86705; 86706; 86850; 86900; 86920; 87040; 87071; 87086; 87186; 87205; 87340; 93005; 93041; 93306; 97139; 99251; 99285; C1752; C1769; C1892; J0360; J0692; J1200; J1644; J1940; J2001; J2150; J2250; J2354; J2405; J2543; J2916; J3010; J3370; J7030; J7042; J7050; J7070; J7799; P9016; Q0162; U0002